=== PATIENT | female | born 1955 | race Caucasian/White ===

== ENCOUNTER 2017-10-21 13:01 | Emergency (ER) | payer OTHER ==
[2017-10-21 13:22] VITALS: BP 128/62
--- NOTE | 2017-10-21 14:17 | UC ---
Abdominal Pain Female HPI - HPI Summary HPI Summary: 62 yo female presents with nausea and vomiting whenever she eats anything for the last 3 weeks. She tells me that more times than not she will vomit within an hour of eating any meal. Over the last 3 weeks she endorses a 20lb weight loss - unintentional. She says she has a hx of acid reflux and sometimes this happens, but usually takes OTC medication and has good relief...she has been taking them this time with no relief. Also, over the last 3 days complains of increased SOB with any exertion. She is diabetic and says he BS has been running around 150. Denies fever, chills, chest pain, abdominal pain, diarrhea, or dysuria. - History of Current Complaint Chief Complaint: UCGI Stated Complaint: VOMITING Time Seen by Provider: 10/21/17 13:36 Hx Obtained From: Patient Severity Currently: None Pain Intensity: 0 Allergies/Adverse Reactions: Allergies Allergy/AdvReac Type Severity Reaction Status Date / Time No Known Allergies Allergy Verified 10/21/17 14:52 Home Medications: Home Medications Glimepiride 1 tab PO BID 10/21/17 [History Confirmed 10/21/17] Lisinopril/HCTZ 20/25(NF) [Zestoretic 20/25(NF)] 1 tab PO BID 10/21/17 [History Confirmed 10/21/17] Methylcobalamine (NF) [B-12] 1 tab PO DAILY 10/21/17 [History Confirmed 10/21/17 ] Pioglitazone TAB* [Actos TAB*] 1 tab PO DAILY 10/21/17 [History Confirmed ] Sitagliptin Phosphate [Januvia] 1 tab PO DAILY 10/21/17 [History Confirmed 10/21] metFORMIN* [Glucophage 850 MG TAB *] 1 tab PO TID 10/21/17 [History Confirmed ] PMH/Surg Hx/FS Hx/Imm Hx Endocrine History: Diabetes Cardiovascular History: Hypertension GI/ History: Gastroesophageal Reflux - Surgical History Surgical History: None - Family History Known Family History: Positive: Diabetes - Social History Lives: With Family Alcohol Use: None Substance Use Type: None Smoking Status (MU): Never Smoked Tobacco Review of Systems Constitutional: Negative Skin: Negative Eyes: Negative ENT: Negative Respiratory: Shortness Of Breath Cardiovascular: Negative Gastrointestinal: Vomiting, Nausea Genitourinary: Negative Motor: Negative Neurovascular: Negative Musculoskeletal: Negative Neurological: Negative Psychological: Negative All Other Systems Reviewed And Are Negative: Yes Physical Exam - Summary Physical Exam Summary: GENERAL: NAD. Obese SKIN: No rashes, sores, or open wounds. HEENT: Head: AT/NC Eyes: PERRLA. EOM intact. Conjunctiva clear without inflammation or discharge. Ears: Hearing grossly normal. TMs intact, no bulging, erythema, or edema. Nose: Nasal mucosa pink and moist. NTTP maxillary and frontal sinus. Throat: Posterior oropharynx without exudates, erythema, or tonsillar enlargement. Uvula midline. NECK: Supple. Nontender. No lymphadenopathy. CHEST: CTAB. No r/r/w. No accessory muscle use. Breathing comfortably and in no distress. CV: Tachycardia. Without m/r/g. Pulses intact. Brisk cap refill. ABDOMEN: Soft. NTTP. No distention or guarding. Bowel sounds present NEURO: Alert. CN II-XII grossly intact. PSYCH: Age appropriate behavior. Triage Information Reviewed: Yes Vital Signs: Initial Vital Signs Temp 100.4 F 10/21/17 13:19 Pulse 119 10/21/17 13:19 Resp 18 10/21/17 13:19 BP 128/62 10/21/17 13:19 Pulse Ox 97 10/21/17 13:19 Abd Pain Female Course/Dx - Course Course Of Treatment: POC Glucose "out of range" indicating >400. EKG Sinus tach with old anterior infarct rate 104bpm. No ST changes. As read by Dr. Lala. Given her hyperglycemia and persistant vomiting - I have advised her to be further evaluated in the ED. She declined ambulance and will have her family member with her today drive her. - Differential Dx/Diagnosis Provider Diagnoses: Vomiting. Hyperglycemia Discharge - Sign-Out/Discharge Documenting (check all that apply): Discharge/Admit/Transfer - Discharge Plan Condition: Stable Disposition: HOME Referrals: No Primary Care Phys,NOPCP [Primary Care Provider] - Additional Instructions: Please have your ride drive you to the ER for further evaluation of your hyperglycemia and vomiting - Billing Disposition and Condition Condition: STABLE Disposition: Home
== END 2017-10-21 14:20 | disposition home or self-care (01) ==
LOC: UCEAST 13:01
DX: R11.2 Nausea with vomiting, unspecified (principal); R73.9 Hyperglycemia, unspecified; I10 Essential (primary) hypertension; K21.9 Gastro-esophageal reflux disease without esophagitis; Z79.899 Other long term (current) drug therapy
CPT/HCPCS: 93005; 99202; G0463

== ENCOUNTER 2017-10-21 14:44 | Inpatient (IN) | payer OTHER ==
[2017-10-21] MEDS ORDERED: NS 0.9% 1000 ML* 1,000 ML IV ONE ×2 (16:13→18:05)
[2017-10-21 16:38] LABS: ABS Basophils 0 10^3/ul (0-0.2); ABS Eosinophils 0 10^3/ul (0-0.6); ABS Lymphocytes 0.8 10^3/ul (1.0-4.8); ABS Monocytes 1.3 10^3/ul (0-0.8); ABS Neutrophils 19.7 10^3/ul (1.5-7.7); ABS Nucleated RBC 0 10^3/ul; Eosinophil % 0 % (0-6); Hematocrit 31 % (35-47); Hemoglobin 10.7 g/dl (12.0-16.0); Lymphocyte % 3.7 % (25-47); Mean Corpuscular HGB Conc 34 g/dl (31-36); Mean Corpuscular Hemoglobin 28 pg (27-31); Mean Corpuscular Volume 83 fL (80-97); Mean Platelet Volume 6.8 um3 (7.4-10.4); Nucleated Red Blood Cells % 0; Platelet Count 594 10^3/ul (150-450); Red Blood Count 3.79 10^6/ul (4.00-5.40); Red Cell Distribution Width 14 % (10.5-15); White Blood Count 21.8 10^3/ul (3.5-10.8)
[2017-10-21 17:08] LABS: EGFR Non-African American 41.6 (>60)
[2017-10-21] MEDS ORDERED: Insulin REGULAR(*) 1 UNITS UNIT SUBCUT ONE (18:05)
[2017-10-21 18:12] LABS: Urine Appearance Turbid; Urine Blood 2+ (Negative); Urine Color Amber; Urine Ketones Trace (Negative); Urine Protein 2+(100 mg/dL) (Negative); Urine Red Blood Cell 3+(>10/hpf) (Absent); Urine Specific Gravity 1.024 (1.010-1.030); Urine Urobilinogen Negative (Negative); Urine White Blood Cell 3+(>20/hpf) (Absent)
[2017-10-21] MEDS ORDERED: Ciprofloxacin 400MG IVPREMIX(* 400 MG/200 ML BAG IVPB ONE (18:55)
[2017-10-21] MEDS ORDERED: Dextrose 50% Syringe 50 ML* 25 GM/50 ML SYRINGE IV PUSH PRN (19:44)
[2017-10-21] MEDS ORDERED: Vancomycin per Pharmacy* NOTE FOLLOW UP SCH (20:00)
[2017-10-21] MEDS ORDERED: Vancomycin(*) 2,000 MG in NS 0.9% 500 ML* 500 ML IVPB ONE (20:15)
[2017-10-21] MEDS: metroNIDAZOLE IV 500 MG/100ML* 500 MG/100 ML BAG IVPB SCH (20:16)
[2017-10-21] MEDS: Cefepime 2 GM in Dextrose(*) 2 GM/50 ML BAG IV SCH (20:16)
--- NOTE | 2017-10-21 20:20 | RAD ---
INDICATION: Short of breath COMPARISON: None TECHNIQUE: An AP portable view obtained at 2015 hours is submitted. FINDINGS: Bones/Soft Tissues: There are no acute bony findings. Cardiomediastinal: The cardiomediastinal silhouette is normal. The interstitium is prominent. This is likely accentuated due to shallow inspiratory effort. Lungs: A small infiltrate left lung base is not excluded. Lung jones are otherwise clear. Pleura: Suspect small left-sided effusion. Other: None IMPRESSION: Possible left basilar infiltrate and small effusion
[2017-10-21 20:45] LABS: INR 1.36 (0.77-1.02)
[2017-10-21] MEDS: Heparin VIAL(*) 5000 UNITS/ML VIAL (FIVE THOUSAND) SUBCUT SCH (22:45)
[2017-10-21 22:57] LABS: EGFR Non-African American 52.2 (>60)
--- NOTE | 2017-10-22 00:42 | HP ---
CC: Dr. Bud Edwards, [place], [place]; Dr. Linda; Dr. Kelley * CONSULTATION REPORT: DATE OF CONSULT: 10/21/17 PRIMARY CARE PROVIDER: Dr. Bud Edwards, [place], [place], phone number [phone]. CONSULTING ORTHOPEDIST: Dr. Linda. CONSULTING INFECTIOUS DISEASE: Dr. Kelley. ATTENDING PHYSICIAN WHILE IN THE HOSPITAL: Dr. Benny Chin * (report dictated by Matthew Cuello NP). CHIEF COMPLAINT: 1. Nausea. 2. Vomiting. 3. Weight loss. 4. Right foot infection. HISTORY OF PRESENT ILLNESS: Ms. Wallace is a 62-year-old female patient, who is visiting from [place]. She is visiting her parents, who reside here. She states that over the last couple weeks, she has been having intermittent nausea and vomiting. She has not really been eating. She has not been feeling well. She has had the general malaise. She is having chills at night. She states that she has not had any abdominal pain. No dysuria or frequency. No flank tenderness. She has denied any coffee-ground emesis. There has been no tarry stools. She has been having bowel movements. She denies any having any abdominal discomfort. She also states that about 2 weeks ago, she stubbed her toe. She has had a fissure or crack in her toe. She was seen by her steward/stewardess bath. She was keeping an eye on it; however, though the toenail fell off and she states that it has been having a foul, malodorous smell, particularly the right great toe. She states that it has been red, hot, erythematic and this has not been healing. She did notice some black tissue to it as well. She states that she has never had any amputation before for her diabetes and that this was the first that this has happened. She states her sugars have been uncontrolled over the last week. She has had significant elevated glucose. She states that, that is why she initially went to Urgent Care today because of the nausea and her blood glucose being high. She thought she was in DKA. She was sent here and it was noted that she had this significant infection of her toe and we were asked to evaluate for admission. PAST MEDICAL HISTORY: Significant for: 1. Diabetes. 2. Hypertension. 3. Hyperlipidemia. PAST SURGICAL HISTORY: The patient has had a: 1. Hysterectomy. 2. Breast reduction. HOME MEDICATIONS: Include: 1. Calcium 500 mg daily. 2. B12 one tablet p.o. daily. 3. Lisinopril/hydrochlorothiazide 1 tablet p.o. b.i.d. 4. Metformin 1 tablet p.o. t.i.d. 5. Januvia 1 tablet p.o. daily. 6. Lactose 1 tablet p.o. daily. 7. Glimepiride 1 tablet p.o. b.i.d. ALLERGIES TO MEDICATIONS: Include no known drug allergies. FAMILY HISTORY: Mother had a history of uterine cancer. Father is healthy. SOCIAL HISTORY: The patient does not smoke. She does not drink. Surrogate decision maker is her brother and sister. REVIEW OF SYSTEMS: There is a documented fever at Urgent Care, it was 100.4. There was a 20-pound weight loss over the last 2 weeks. She denies having any double vision. There is no ear discharge. There is no rhinorrhea. She denies having any sore throat. No thyroid enlargement. Denies having any chest pain. There was again no orthopnea, no nocturnal dyspnea. She does admit to having nausea with vomiting, but no abdominal pain. No dysuria, no frequency. No seizure. No loss of consciousness. No pruritus. There is skin ulceration per my HPI. Review of 14 systems was completed, all others negative. PHYSICAL EXAMINATION General: At this time, Ms. Wallace is a 62-year-old female patient. She is sitting in the ED stretcher. She does not appear to be in any acute distress. Vital Signs: Blood pressure initially 127/70, it is now 148/50. Pulse initially when she came in was 115, it is now 90, respirations 18, O2 sat 98%, temperature 98.9. HEENT: Head atraumatic, normocephalic. Eyes: EOMs are intact. Sclerae are anicteric, not pale. Throat: Oral mucosa appears to be dry. No oropharyngeal erythema. Neck: Supple. LUNGS: Clear to auscultation bilaterally. No wheezes, rales or rhonchi. HEART: S1, S2. Regular rate and rhythm. There are no murmurs, rubs or gallops. ABDOMEN: Soft, flat, nontender. Bowel sounds were present. There is no CVA tenderness. No abdominal tenderness. EXTREMITIES: She did have pulses 2+ throughout. She moves all 4 extremities with 5/5 strength. NEUROLOGICAL: She is awake, alert, oriented x3. Tongue midline. Coupon And Bond Collection Clerk are equal. No gross focal deficits. SKIN: She does have a significant right great toe infection with sloughing and widening of the tissue. There is necrosis and gangrene to the right great toe. It is actually shorter than her left great toe. There is no exposed bone that I could see. There is significant again diabetic ulcer to the tip of the toe. There is erythema extending up into the mid foot. Otherwise, skin is intact. DIAGNOSTIC STUDIES/LAB DATA: Her labs today revealing a WBC of 21.8, RBC of 3.79, hemoglobin of 10.7, hematocrit 31, platelet count was 594. The blood gas , pH of 7.40, pCO2 of 46, bicarb 26. Sodium 124, potassium 4.7, chloride 87, bicarb 26, BUN 39, creatinine 1.29, glucose 415, lactate 1.2, calcium 9.1, total bili 0.5, AST 35, ALT 51, alk phos 82, troponin 0, CRP 149. Urine showed 2+ protein, trace ketones, 2+ blood, 3+ leukocyte esterase, 2+ wbc's, 2+ rbc's, 3+ bacteria. She did have an EKG done over to [facility] showing a sinus tachycardia at a rate of 104. No ST elevations were noted. She did have biphasic T-wave in V1 and inverted T waves in lead III. No previous for comparison though. Old medical records were reviewed. ASSESSMENT AND PLAN: Ms. Wallace is a 62-year-old female patient coming into the emergency department with complaints of nausea, vomiting, on evaluation found to have a significant gangrenous right great toe. We were asked to evaluate for admission. She will be admitted under observation status for: 1. Sepsis. I suspect the source of this is probably secondary to that great toe. I am concerned that she has osteomyelitis. Fortunately though she did respond to fluids here. She does not appear to be in permanent septic shock. She certainly does have the element of sepsis, the white count, and the tachycardia when she came in. I do not have a baseline creatinine and this could be a baseline creatinine given the diabetes. My plan would be to put her on broad-spectrum antibiotics, vanco, cefepime, and Flagyl. Blood cultures have been sent. We will send a urine culture. I will get Dr. Kelley involved and Dr. Linda has been consulted if she is going to need debridement of this foot and possibly amputation and I am getting an MRI of that lower extremity to define the extent of osteomyelitis. 2. Hyponatremia, this is multifactorial. She has been having nausea and vomiting. I suspect the nausea and vomiting is probably related to the fact that she is septic and that is where the weight loss was coming from. I would like to treat this underlying infection, it should help. She has no abdominal tenderness or cerebrovascular accident tenderness to think there is an abdominal pathology here. My plan would be to send off the urine sodium, urine osmol, serum osmol, TSH, cortisol, hydrate her, stop her hydrochlorothiazide as that is an offending agent. Repeat the BMP later tonight because she did receive 2 L of fluid and follow the sodium closely. 3. Diabetes. I will put her on a lispro sliding scale. I will add on an A1c. 4. Hypertension. In the setting of this acute illness, I am going to hold off on her lisinopril and hydrochlorothiazide, we can always restart this later. 5. Risk stratification. I am waiting for the risk stratification for possible OR. I am waiting for EKG and a chest x-ray. If these are stable, she does score on the RCRI for the diabetes, which places her at a 1% risk for cardiac , non-fatal myocardial infarction, and non-fatal cardiac arrest, and 1.3% for myocardial infarction, pulmonary edema, ventricular fibrillation, primary cardiac risk including heart block; however, the proposed procedure is low-risk so if the EKG is stable and the chest x-ray is stable and the sodium comes up, she would be medically optimized; but at this point, again we need to work on these. 6. Hyperlipidemia. Continue meds as prescribed. 7. DVT prophylaxis. High risk and will be placed on heparin subcu. 8. Code status is full code. 9. Fluids, electrolytes, and nutrition. She can have a consistent carb diet. I will make her n.p.o. after midnight for possible amputation tomorrow if this is possible. TIME SPENT: Time spent on the admission 60 minutes, greater than half of the time was spent [id number] with the patient obtaining my history and physical; other half time was spent going over the plan of care with the patient and implementing plan of care. I did discuss the plan of care with my attending, Dr. Benny Chin, and he is in agreement. MATTHEW CUELLO, MICHELLE [id number]/CPS #: [id number] ERIC
[2017-10-22] MEDS: metroNIDAZOLE IV 500 MG/100ML* 500 MG/100 ML BAG IVPB SCH ×3 (04:45→20:40)
[2017-10-22] MEDS: Vancomycin(*) 1,000 MG in NS 0.9% 250 ML* 250 ML IVPB SCH ×3 (05:56→22:18)
[2017-10-22] MEDS: Heparin VIAL(*) 5000 UNITS/ML VIAL (FIVE THOUSAND) SUBCUT SCH ×3 (05:56→22:18)
[2017-10-22 06:03] LABS: ABS Basophils 0 10^3/ul (0-0.2); ABS Eosinophils 0 10^3/ul (0-0.6); ABS Neutrophils 9.2 10^3/ul (1.5-7.7); ABS Nucleated RBC 0 10^3/ul; Eosinophil % 0.2 % (0-6); Hematocrit 27 % (35-47); Hemoglobin 9.3 g/dl (12.0-16.0); Mean Corpuscular HGB Conc 34 g/dl (31-36); Mean Corpuscular Hemoglobin 28 pg (27-31); Mean Corpuscular Volume 83 fL (80-97); Mean Platelet Volume 6.4 um3 (7.4-10.4); Nucleated Red Blood Cells % 0; Platelet Count 520 10^3/ul (150-450); Red Blood Count 3.29 10^6/ul (4.00-5.40); Red Cell Distribution Width 14 % (10.5-15); White Blood Count 11.3 10^3/ul (3.5-10.8)
[2017-10-22 06:29] LABS: EGFR Non-African American 60.7 (>60)
--- NOTE | 2017-10-22 06:58 | ED ---
Joaquin Murrieta Angela, scribed for Krishna Osman MD on 10/21/17 at 1618 . HPI Diabetic - HPI Summary HPI Summary: This pt is a 62 y/o female presenting to [facility] referred by [facility] c/o vomiting for the past 3 weeks. Pt reports weight loss, losing 20 lbs over the past 2 weeks. She notes she has had decreased PO intake secondary to vomiting. Denies any pain, abd pain, chest pain. Pt originally thought she had acid reflux but went to Urgent Care today and her POC blood glucose was greater than 500. PMHx includes DM, HTN. She has been taking Metformin, Januvia, Pioglitazone, Glimepiride for "quite a while now." Pt lives in [place]. - History Of Current Complaint Chief Complaint: EDNauseaVomitDiarrh Time Seen by Provider: 10/21/17 16:00 Hx Obtained From: Patient Onset/Duration: Lasting Weeks, Still Present Timing: Weeks Character: Alert Aggravating: Nothing Alleviating: Nothing Associated Signs & Symptoms: Vomiting, Weight Loss - Allergies/Home Medications Allergies/Adverse Reactions: Allergies Allergy/AdvReac Type Severity Reaction Status Date / Time No Known Allergies Allergy Verified 10/21/17 14:52 Home Medications: Home Medications Calcium Carbonate [Calcium] 500 mg PO DAILY 10/21/17 [History Confirmed 10/21/17 ] PMH/Surg Hx/FS Hx/Imm Hx Endocrine/Hematology History: Reports: Hx Diabetes Cardiovascular History: Reports: Hx Hypertension Infectious Disease History: No Infectious Disease History: Denies: Traveled Outside the [place] in Last 30 Days - Social History Alcohol Use: None Substance Use Type: Reports: None Smoking Status (MU): Never Smoked Tobacco Review of Systems Constitutional: Other - POS: decreased PO intake, weight loss Negative: Fever Negative: Chest Pain Positive: Vomiting. Negative: Abdominal Pain All Other Systems Reviewed And Are Negative: Yes Physical Exam - Summary Physical Exam Summary: Appearance: The patient is well-nourished in no acute distress and in no acute pain. Skin: The skin is warm and dry and skin color reflects adequate perfusion. HEENT: The head is normocephalic and atraumatic. The pupils are equal and reactive. The conjunctivae are clear and without drainage. Nares are patent and without drainage. Mouth reveals dry mucous membranes and the throat is without erythema and exudate. The external ears are intact. The ear canals are patent and without drainage. The tympanic membranes are intact. Neck: the neck is supple with full range of motion and non-tender. There are no carotid bruits. There is no neck vein distension. Respiratory: Chest is non-tender. Lungs are clear to auscultation and breath sounds are symmetrical and equal. Cardiovascular: Heart is regular rate and rhythm. There is no murmur or rub auscultated. There is no peripheral edema and pulses are symmetrical and equal. Abdomen: The abdomen is soft and non-tender. There are normal bowel sounds heard in all four quadrants and there is no organomegaly palpated. Musculoskeletal: There is no back tenderness noted. Extremities are non-tender with full range of motion. There is good capillary refill. There is no peripheral edema or calf tenderness elicited. Neurological: Patient is alert and oriented to person, place and time. The patient has symmetrical motor strength in all four extremities. Cranial nerves are grossly intact. Deep tendon reflexes are symmetrical and equal in all four extremities. Psychiatric: The patient has an appropriate affect and does not exhibit any anxiety or depression. Triage Information Reviewed: Yes Vital Signs On Initial Exam: Initial Vitals Temp Pulse Resp BP Pulse Ox 98.9 F 115 16 127/70 98 10/21/17 14:50 10/21/17 14:50 10/21/17 14:50 10/21/17 14:50 10/21/17 14:50 Vital Signs Reviewed: Yes Diagnostics - Vital Signs Vital Signs Temp Pulse Resp BP Pulse Ox 10/21/17 14:50 98.9 F 115 16 127/70 98 - Laboratory Result Diagrams: 10/22/17 05:49 10/22/17 05:49 Lab Statement: Any lab studies that have been ordered have been reviewed, and results considered in the medical decision making process. Diabetic Course/Dx - Course Course Of Treatment: Ms. Wallace presented to the emergency department complaining of vomiting and weight loss over the last 2 weeks. She went to [facility] where she was noted to be hyperglycemic and transferred to the emergency department. She was given IV fluids, found to be hyperglycemic with a blood sugar over 400 no DKA and found to have a leukocytosis of 20,000 and a UTI. She was given more IV fluids, insulin and Cipro. The hospitalist service was contacted for admission. - Diagnoses Provider Diagnoses: Hyperglycemia, UTI (urinary tract infection) - Physician Notifications Discussed Care Of Patient With: Ernestina Black Time Discussed With Above Provider: 18:55 Instructed by Provider To: Other - I discussed pt care with Dr. Black, hospitalist, who accepted the pt for admission. - Critical Care Time Critical Care Time: 30-74 min Discharge - Sign-Out/Discharge Documenting (check all that apply): Discharge/Admit/Transfer - Admit - Discharge Plan Condition: Stable Disposition: ADMITTED TO [facility] - Billing Disposition and Condition Condition: STABLE Disposition: Admitted to [facility] The documentation as recorded by the Joaquin vigil Angela, SCRIBE accurately reflects the service I personally performed and the decisions made by me, Krishna Osman MD.
--- NOTE | 2017-10-22 07:21 | RAD ---
INDICATION: Right foot osteomyelitis. COMPARISON: There are no prior studies available for comparison. TECHNIQUE: Axial, sagittal and coronal T1 and T2-weighted images of the right foot were obtained. FINDINGS: There is diffuse soft tissue swelling throughout the foot with more focal swelling and ulceration in the great toe. There is bone marrow edema in the phalanges of the great toe and distal half of the first metatarsal. No focal fluid collection or abscess is seen. IMPRESSION: FINDINGS MOST CONSISTENT WITH OSTEOMYELITIS INVOLVING THE RIGHT GREAT TOE AND FIRST METATARSAL.
--- NOTE | 2017-10-22 08:34 | RAD ---
INDICATIONS: osteo, foot infection COMPARISONS: None TECHNIQUE: Ankle-brachial indices and Doppler tracings were obtained of the lower extremities bilaterally. FINDINGS: Right: The posterior tibial ankle brachial index is 1.45. The dorsalis pedis ankle brachial index is 1.21. The posterior tibial waveform is triphasic. The dorsalis pedis waveform is triphasic. Left: The posterior tibial ankle brachial index is 1.34. The dorsalis pedis ankle brachial index is 1.19. The posterior tibial waveform is triphasic. The dorsalis pedis waveform is triphasic. OTHER: None. IMPRESSION: 1. THERE IS ELEVATION OF THE ANKLE-BRACHIAL INDICES SUGGESTIVE OF DECREASED COMPLIANCE IN THE SETTING ARTERIOSCLEROSIS. THIS MAY ARTIFACTUALLY MASK PERIPHERAL ARTERIAL OCCLUSIVE DISEASE. 2. THE DISTAL WAVEFORMS ARE NORMAL.
[2017-10-22] MEDS: Insulin LISPRO* 1 UNITS UNIT SUBCUT SCH ×3 (10:04→19:44)
[2017-10-22] MEDS: Cefepime 2 GM in Dextrose(*) 2 GM/50 ML BAG IV SCH ×2 (11:06→19:56)
--- NOTE | 2017-10-22 14:44 | PN ---
Subjective Date of Service: 10/22/17 Interval History: Pt reports little pain stating she only feels a throbbing. She denies fever or chills. Reports she did have nausea prior to coming in which has since resolved. She reports she feels "pretty good today". She reports she noted a crack in the toe a few weeks ago then noted it was black, the tip fell off - she denies any pain. She states she follow with a tax compliance officer every month. Objective Active Medications: Acetaminophen (Tylenol Tab*) 650 mg PO Q4H PRN PRN Reason: FEVER/PAIN Dextrose (D50w Syringe 50 Ml*) 12.5 gm IV PUSH .FOR FS < 60 - SS PRN PRN Reason: FS < 60 Heparin Sodium (Porcine) (Heparin Vial(*)) 5,000 units SUBCUT Q8HR [facility] Last Admin: 10/22/17 14:32 Dose: 5,000 units Cefepime HCl (Maxipime 2 Gm In Dextrose Duplex (*)) 2 gm in 50 mls @ 100 mls/ hr IV Q12H [facility] Last Admin: 10/22/17 11:06 Dose: 100 mls/hr Metronidazole/Sodium Chloride (Flagyl 500 Mg Ivpb*) 500 mg in 100 mls @ 100 mls /hr IVPB Q8H [facility] Last Admin: 10/22/17 14:33 Dose: 100 mls/hr Sodium Chloride (Ns 0.9% 1000 Ml*) 1,000 mls @ 100 mls/hr IV PER RATE [facility] Vancomycin HCl 1,000 mg/ (Sodium Chloride) 250 mls @ 166.667 mls/hr IVPB Q8H [facility] Last Admin: 10/22/17 05:56 Dose: 166.667 mls/hr Insulin Human Lispro (Humalog*) 0 units SUBCUT AC [facility]; Protocol Last Admin: 10/22/17 14:33 Dose: 6 units Morphine Sulfate (Morphine Vial*) 2 mg IV Q2H PRN PRN Reason: PAIN Pharmacy Consult (Vancomycin Per Pharmacy*) 1 note FOLLOW UP .VANC PER PHARMACY [facility] Pharmacy Profile Note (Vancomycin Trough Check) 1 note FOLLOW UP 0600 ONE Stop: 10/23/17 06:01 Vital Signs - 8 hr 10/22/17 11:24 Temperature 98.4 F Pulse Rate 77 Respiratory 18 Rate Blood Pressure 123/41 (mmHg) O2 Sat by Pulse 97 Oximetry Oxygen Devices in Use Now: None Appearance: 62 yo obese female laying in bed in NAD, A+Ox3 Eyes: No Scleral Icterus, PERRLA Ears/Nose/Mouth/Throat: NL Teeth, Lips, Gums, Mucous Membranes Moist Neck: NL Appearance and Movements; NL JVP Respiratory: Symmetrical Chest Expansion and Respiratory Effort, Clear to Auscultation Cardiovascular: NL Sounds; No Murmurs; No JVD, RRR Abdominal: NL Sounds; No Tenderness; No Distention Extremities: - - right big toe is black, the tip is missing, draining small amount of clear, yellow fluid. Foul odor Neurological: Alert and Oriented x 3 Lines/Tubes/Other Access: Clean, Dry and Intact Peripheral IV Nutrition: - - NPO Result Diagrams: 10/22/17 05:49 10/22/17 05:49 Assess/Plan/Problems-Billing Assessment: 62 yo female with uncontrolled diabetes presents to the emergency department with c/o N/V found to have a necrotic toe and sepsis. - Patient Problems (1) Gangrene Comment: - Right great toe. - MRI right LE showing "findings most consistent with osteomyletis of the right great toe and elsa metatarsal". - Appreciate Ortho consult - plan for OR today or tomorrow. - Continue Cefepime, Flagyl, Vanco - Apprciate ID consult (2) Sepsis Comment: - resolved. Screening positive for sepsis on admission with tachycardia and leukocytosis. Leukocytosis is trending down 21k down to 11. CRP 149, ESR 118. No lactic acidosis. - Blood cx pending (3) Pre-op evaluation Comment: Patients RCRI score Class II risk placing her at 0.9% risk of cardiac event. She is active and exercises regularly w/o CP or SOB, and has METS > 4. However, she is an uncontrolled diabetic, and has an abnormal EKG showing possible old CA. Will obtain an echocardiogram to evlauate EF and valvular function. (4) Acute kidney failure Comment: resolved with IVFs (5) Hyponatremia Comment: - Suspect multifactorial with HCTZ, vomiting and dehydration. - Improving with IVFs. - recheck labs in am (6) Diabetes Comment: - uncontrolled DM. HgA1c 10 - Hold oral medications, continue FSBG with Lispro SS (7) HTN (hypertension) Comment: - controlled - HCTZ on hold d/t hyponatremia. Can restart lisinopril after surgery - Kim currently controlled (8) Patient is full code (9) DVT prophylaxis Comment: HSQ Status and Disposition: inpatient.
[2017-10-22] MEDS ORDERED: Bupivacaine 0.5% PF 10 ML VIAL INJ ONE (15:11)
[2017-10-22] MEDS ORDERED: fentaNYL* 50 MCG/ML 2 ML VIAL (100 MCG VIAL) ONE ×3 (15:36→17:41)
[2017-10-22] MEDS ORDERED: Midazolam* 1 MG/ML 2 ML VIAL (2 MG) ONE (15:37)
[2017-10-22] MEDS ORDERED: Lidocaine 2% PF* 10 ML AMP ONE (16:17)
[2017-10-22] MEDS ORDERED: Propofol* 10 MG/ML 20 ML BTL IV PUSH ONE (16:37)
[2017-10-22] MEDS ORDERED: Ondansetron INJ* 2 MG/ML VIAL IV PRN (17:03)
[2017-10-22] MEDS ORDERED: Naloxone* 0.4 MG/ML 1 ML VIAL IV PRN (17:03)
[2017-10-22] MEDS ORDERED: HYDROmorphone INJ* 0.5 MG/0.5 ML SYRINGE ONE ×2 (17:41→18:07)
[2017-10-22] MEDS: fentaNYL* 50 MCG/ML 2 ML VIAL (100 MCG VIAL) IV PRN ×2 (17:42→18:02)
[2017-10-22] MEDS: HYDROmorphone INJ* 0.5 MG/0.5 ML SYRINGE IV PRN ×2 (17:45→18:07)
[2017-10-22] MEDS: NS 0.9% 1000 ML* 1,000 ML IV SCH (18:25)
--- NOTE | 2017-10-22 18:42 | CONS ---
CONSULTATION REPORT: DATE OF CONSULT: 10/22/17 REQUESTING PROVIDER: Matthew Cuello NP CONSULTING SERVICE: Infectious Disease. REASON FOR CONSULT: Right foot infection. IMPRESSION: 1. Right foot first great toe and distal metatarsophalangeal joint acute non- hematogenous osteomyelitis with wet gangrene, limb threatening infection. 2. Diabetes with neuropathy and hyperglycemia. 3. Morbid obesity. 4. Peripheral vascular disease. RECOMMENDATIONS: Agree with broad-spectrum antibiotics. Vancomycin goal trough of 15 to 20 with cefepime 2 g every 12 hours and IV Flagyl every 8 hours as well as surgical evaluation, which is ongoing. The presence of this rapidly progressive infection and gangrene does leave concern for significant component of vascular compromise and so, her ROBBIN showed increased indices likely due to calcification, likely we should discuss this with radiologist to see what the next best imaging test is to assess the blood flow. HISTORY OF PRESENT ILLNESS: This is a 62-year-old woman with diabetes and obesity, admitted with right foot infection. She states she stubbed the toe about 2 weeks ago. The tip of the toe eventually came off. She has had progressive redness and swelling and the toe color turned black and started having a foul odor. She said the skin on the foot started turning red and swollen and she felt like she was getting some bubble on the bottom of her foot. She was having some fever or chills at home. Her blood sugar was much higher at home. She proceeded to urgent care yesterday and was directed to the emergency room. Had a white count 22,000 and platelets of 600,000. MRI showed osteomyelitis in the great toe and first metatarsal head. She had been on vancomycin, cefepime and Flagyl, tolerating that well and no fever since arriving here. Her white count is down to 11,000 today. She has had a third toe infection on that foot in the past, treated with resection of some bone. She is not allergic to antibiotics. PAST MEDICAL HISTORY: 1. Morbid obesity. 2. 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 3. Hypertension. 4. Hyperlipidemia. 5. Status post hysterectomy. 6. Status post breast reduction. MEDICATIONS: 1. Tylenol. 2. Heparin subcutaneous injection. 3. Cefepime 2 g every 12 hours. 4. Flagyl 500 mg every 8 hours. 5. Vancomycin 1 g every 8 hours. ALLERGIES: No known drug allergies. FAMILY HISTORY: Father is healthy, mother is alive as well with history of uterine cancer and foot osteomyelitis. SOCIAL HISTORY: She lives in [place]. She spends the [place] here where her parents live. No sick contacts. No travel other than from [place]. REVIEW OF SYSTEMS: All negative to 14-point review of systems, except as noted above in the history of present illness. PHYSICAL EXAM: Vital Signs: Temperature 37, heart rate 80, respiratory rate 18 , blood pressure 123/40, oxygen saturation 97% on room air. In general, she is awake, not in distress. Neurologic: She is oriented x3, follows all commands, moves all of her extremities. Sensation is decreased to light touch in both feet. HEENT: There is no conjunctival hemorrhage. Oropharynx without lesions. Neck: Supple without mass. Heart: Regular rate and rhythm without murmurs, rubs, or gallops. Lungs: Clear to auscultation bilaterally. Abdomen: Soft, nontender, obese. There is bowel sounds present. Skin: There is no rash or splinter hemorrhage. On the right foot, what is left of the great toe is black. There is purulent drainage from it, which extends under the dermis through the plantar foot. There is no crepitus. There is diffuse edema and some fluctuance on the plantar forefoot. The foot is warm. There is no palpable pulse on the feet. LABORATORY DATA: White blood cell count 11, hemoglobin 9, platelets 520. Creatinine is 0.9. CRP 150. Please see impressions and recommendations as outlined above. Thanks for asking me to see Ms. Wallace in consultation. [id number]/[facility] #: [id number] [facility]
[2017-10-22] MEDS: Morphine VIAL* 4 MG/ML VIAL (1 ml vial) IV PRN ×2 (19:34→22:46)
[2017-10-22 19:35] LABS: INR 1.37 (0.77-1.02)
--- NOTE | 2017-10-22 19:40 | CONS ---
CONSULTATION REPORT: DATE OF CONSULT: 10/22/17 ORTHOPEDIC ATTENDING: Dr. Surya Lyons. CHIEF COMPLAINT: Right foot infection. HISTORY OF PRESENT ILLNESS: Ms. Wallace is a 62-year-old female who is in town visiting her parents from [place]. Over the past couple weeks, she notes intermittent nausea and vomiting as well as chills at night. She reports 2 weeks ago, she stubbed her toe and subsequently noticed a crack of the right great toe. She did not see her structural architect, but was treated with Cipro, which she finished yesterday. Her toenail has fallen off. She reports a foul odor from the toe. For many years, she has had neuropathy of her feet. She is a diabetic and her sugars have been very poorly controlled, stating that at arrival to the hospital her sugar was over 500. The black coloration of her toe has been present only for 1 week. Due to complications from diabetes, she did have her structural architect remove a section of bone from her toe that easily came off in the office. She has had surgery before without any difficulty with anesthesia. She has never had a heart attack, stroke or blood clot. PAST SURGICAL HISTORY: Includes a hysterectomy and a breast reduction. MEDICATIONS: Home medications include: 1. Calcium 500 mg daily. 2. B12 one tab daily. 3. Lisinopril 20/hydrochlorothiazide 25 one tab p.o. b.i.d. and she states that she also takes 20 mg of lisinopril. 4. Metformin 850 mg 1 tab p.o. t.i.d. 5. Januvia 1 tab 100 mg tab p.o. daily. 6. Lactose 1 tab p.o. daily. 7. Glimepiride 2 mg p.o. b.i.d. ALLERGIES: No known drug allergies. FAMILY HISTORY: Mother has a history of uterine cancer. SOCIAL HISTORY: The patient is a nonsmoker. She does not drink alcohol. She swims 1.5 miles daily without chest pain or difficulty breathing REVIEW OF SYSTEMS: General: Confirms fever and chills. HEENT: No headache. Cardiac: No history of heart attack. No irregular beats. No chest pain. Respiratory: No history of asthma or COPD. No difficulty breathing. GI: Prior to coming into the hospital, she had nausea and vomiting. She has no diarrhea or abdominal pain. : no dysuria. Musculoskeletal: Right foot with right great toe infection. Neuro: neuropathy of bilateral feet. Hematology: No known blood clot history. Skin: Right great toe black/ malodorous PHYSICAL EXAM: Vital Signs: Temperature 98.4, respirations 18, pulse rate 77, oxygen saturation 97%, blood pressure 123/41. General: The patient is well appearing. She is in no acute distress. She is lying comfortably in bed. HEENT: Head is atraumatic, normocephalic. Eyes: Extraocular movements are intact. Lungs: Normal rate and effort of breathing. Cardio: Radial pulses 2+ and regular. Abdomen is soft and nontender. Extremities: Right lower extremity, right great toe is black in coloration and very foul smelling. It is very soft to touch with purulence and presence of maggots in the webspace between toes 1 and 2. Capillary refill is less than 2 seconds in toes 2 through 5. The patient lacks sensation throughout the entirety of the right foot. On the plantar aspect of the foot, there is skin sloughing extending to midfoot. She does have good range of motion of the ankle. Bilateral calves are soft and supple, nontender without any erythema. There is erythema from the right great toe extending up to the midfoot. DIAGNOSTIC STUDIES/LAB DATA: Laboratory studies from 10/22/17, white blood cell count 11.3, hemoglobin 9.3, hematocrit 27, platelet count 520. Sodium 128. MRI shows osteomyelitis of the right great toe and first metatarsal. Ankle-brachial index: Right posterior tibial ankle-brachial index is 1.45, dorsalis pedis ankle-brachial index is 1.21, posterior tibial waveform is triphasic, dorsalis pedis waveform is triphasic. ASSESSMENT: Osteomyelitis of the right great toe and first metatarsal. PLAN: The patient will require surgical intervention including an amputation of at least the great toe, though more likely either transmetatarsal or midfoot. She has been n.p.o. all day. This has been discussed with Dr. Lyons , who plans to bring her to the operating room tonight. We will need to obtain medical optimization. Medicine has been alerted to please see the patient prior to surgery and Infectious Disease is also seeing her to guide antibiotics. JULIANE DUTTON [id number]/[facility] #: [id number] [facility]
[2017-10-22] MEDS: Ondansetron INJ* 2 MG/ML VIAL IV PRN (20:55)
[2017-10-22] MEDS: Acetaminophen TAB* 325 MG PO PRN (22:47)
[2017-10-23] MEDS: metroNIDAZOLE IV 500 MG/100ML* 500 MG/100 ML BAG IVPB SCH ×3 (04:27→20:43)
[2017-10-23] MEDS: Morphine VIAL* 4 MG/ML VIAL (1 ml vial) IV PRN ×5 (04:35→20:03)
[2017-10-23] MEDS: Heparin VIAL(*) 5000 UNITS/ML VIAL (FIVE THOUSAND) SUBCUT SCH ×3 (05:24→21:20)
[2017-10-23] MEDS ORDERED: Vancomycin Trough Check NOTE FOLLOW UP ONE (06:00)
[2017-10-23 06:12] LABS: ABS Basophils 0 10^3/ul (0-0.2); ABS Eosinophils 0.1 10^3/ul (0-0.6); ABS Lymphocytes 0.9 10^3/ul (1.0-4.8); ABS Monocytes 0.8 10^3/ul (0-0.8); ABS Neutrophils 6.4 10^3/ul (1.5-7.7); ABS Nucleated RBC 0 10^3/ul; Eosinophil % 0.7 % (0-6); Hematocrit 26 % (35-47); Hemoglobin 8.8 g/dl (12.0-16.0); Lymphocyte % 11.3 % (25-47); Mean Corpuscular HGB Conc 35 g/dl (31-36); Mean Corpuscular Hemoglobin 29 pg (27-31); Mean Corpuscular Volume 83 fL (80-97); Mean Platelet Volume 6.2 um3 (7.4-10.4); Nucleated Red Blood Cells % 0.1; Platelet Count 470 10^3/ul (150-450); Red Blood Count 3.09 10^6/ul (4.00-5.40); Red Cell Distribution Width 13 % (10.5-15); White Blood Count 8.2 10^3/ul (3.5-10.8)
[2017-10-23 06:31] LABS: EGFR Non-African American 96.9 (>60)
[2017-10-23] MEDS: Vancomycin(*) 1,000 MG in NS 0.9% 250 ML* 250 ML IVPB SCH (06:40)
[2017-10-23] MEDS: Insulin LISPRO* 1 UNITS UNIT SUBCUT SCH ×3 (07:54→16:57)
[2017-10-23] MEDS ORDERED: Perflutren Lipid Microsphere* 3 ML VIAL ONE (08:42)
[2017-10-23] MEDS: Cefepime 2 GM in Dextrose(*) 2 GM/50 ML BAG IV SCH ×2 (10:04→20:03)
[2017-10-23] MEDS: Ondansetron INJ* 2 MG/ML VIAL IV PRN (10:08)
--- NOTE | 2017-10-23 10:37 | OP ---
DATE OF OPERATION: 10/22/17 - ROOM #412 DATE OF : 51 SURGEON: Surya Lyons MD HEALTH OFFICER: JULIANE Proctor PRE-OP DIAGNOSIS: Right forefoot gangrenous, purulent infection with maggot infection. POST-OP DIAGNOSIS: Right forefoot gangrenous, purulent infection with maggot infection with significant deep soft tissue infection to the mid tarsometatarsal area on the plantar aspect. OPERATIVE PROCEDURE: Lisfranc disarticulation right midfoot. DESCRIPTION OF PROCEDURE: The patient was taken to the operating room where the sedation was administered as well as local anesthetic around the ankle. We inspected the forefoot carefully, there were copious amount of maggots between the great toe and the second toe, some greater than 15 mm in length 3 to 4 mm in thickness, basically swarming around the first and second toe and then also working their way proximally along the first, second webspace on the plantar aspect 2 to 3 cm proximally. An ankle Esmarch was used to exsanguinate the foot and then we transected the midfoot as follows, a long dorsal flap was used just back to the MTP level, but on the plantar aspect, we transected proximal to this large pocket of purulence with the insect infection. The foot was disarticulated at the base of the metatarsal level initially. This divided the plantar flap, but there was still purulent material proximally with the lack of skin coverage, so we resected the bases of the metatarsals at the Lisfranc joint. The specimen was sent to Pathology. We irrigated thoroughly and sent cultures from this level. The tourniquet was dropped and there was brisk bleeding both plantar and dorsal, which was controlled with electrocautery and local suture ligatures. We are able to close the dorsal and plantar flaps with 2-0 Vicryl sutures, interrupted 2-0 Prolene sutures. A compression plaster splint was applied. [id number]/[facility] #: [id number] [facility]
--- NOTE | 2017-10-23 11:39 | PN ---
Subjective Date of Service: 10/23/17 Interval History: Patient reports she feels a little drowsy today. She denies pain. No fever or chills. Reports good appetite. No N/V/D. She reports she understands she may need subacute rehab and long-term IV abx. Objective Active Medications: Acetaminophen (Tylenol Tab*) 650 mg PO Q4H PRN PRN Reason: FEVER/PAIN Last Admin: 10/22/17 22:47 Dose: 650 mg Dextrose (D50w Syringe 50 Ml*) 12.5 gm IV PUSH .FOR FS < 60 - SS PRN PRN Reason: FS < 60 Heparin Sodium (Porcine) (Heparin Vial(*)) 5,000 units SUBCUT Q8HR [facility] Last Admin: 10/23/17 05:24 Dose: 5,000 units Cefepime HCl (Maxipime 2 Gm In Dextrose Duplex (*)) 2 gm in 50 mls @ 100 mls/ hr IV Q12H [facility] Last Admin: 10/23/17 10:04 Dose: 100 mls/hr Metronidazole/Sodium Chloride (Flagyl 500 Mg Ivpb*) 500 mg in 100 mls @ 100 mls /hr IVPB Q8H [facility] Last Admin: 10/23/17 04:27 Dose: 100 mls/hr Sodium Chloride (Ns 0.9% 1000 Ml*) 1,000 mls @ 100 mls/hr IV PER RATE [facility] Last Admin: 10/22/17 18:25 Dose: 100 mls/hr Insulin Human Lispro (Humalog*) 0 units SUBCUT AC [facility]; Protocol Last Admin: 10/23/17 07:54 Dose: 3 units Morphine Sulfate (Morphine Vial*) 2 mg IV Q2H PRN PRN Reason: PAIN Last Admin: 10/23/17 07:27 Dose: 2 mg Ondansetron HCl (Zofran Inj*) 4 mg IV Q6H PRN PRN Reason: NAUSEA Last Admin: 10/23/17 10:08 Dose: 4 mg Pharmacy Profile Note (Vancomycin Trough Check) 1 note FOLLOW UP 629 ONE Stop: 10/24/17 06:31 Vital Signs - 8 hr 10/23/17 10/23/17 10/23/17 04:35 05:40 07:27 Respiratory 16 16 16 Rate Oxygen Devices in Use Now: None Appearance: obese female laying in bed in NAD, A+Ox3 Eyes: No Scleral Icterus, PERRLA Ears/Nose/Mouth/Throat: NL Teeth, Lips, Gums, Mucous Membranes Moist Respiratory: Symmetrical Chest Expansion and Respiratory Effort, Clear to Auscultation Cardiovascular: NL Sounds; No Murmurs; No JVD, RRR Abdominal: NL Sounds; No Tenderness; No Distention, - - obese Extremities: No Clubbing, Cyanosis, - - right transmetatarsal amputation, with CD+I dressing, no noted drainage, Skin: No Rash or Ulcers Neurological: Alert and Oriented x 3 Lines/Tubes/Other Access: Clean, Dry and Intact Peripheral IV Nutrition: Taking PO's Result Diagrams: 10/23/17 05:54 10/23/17 05:54 Microbiology and Other Data: Microbiology 10/22/17 16:40 Anaerobic Culture - Preliminary Wound - Right 10/21/17 17:32 Urine Culture - Final Urine 10/22/17 16:40 Skin and Soft Tissue MRSA/MSSA (PCR - Final Foot Right Mrsa Negative S.aureus Positive Gram Stain - Final 10/21/17 20:07 Aerobic Blood Culture - Preliminary Blood Venous No Growth Day 1 Anaerobic Blood Culture - Preliminary No Growth Day 1 10/21/17 20:07 Aerobic Blood Culture - Preliminary Blood Venous No Growth Day 1 Anaerobic Blood Culture - Preliminary No Growth Day 1 Assess/Plan/Problems-Billing Assessment: 62 yo female with uncontrolled diabetes presents to the emergency department with c/o N/V found to have a necrotic toe and sepsis. - Patient Problems (1) Gangrene Comment: - with osteo. s/p right transmetatarsal amputation 10/22 - POD #1 - MRI right LE showing "findings most consistent with osteomyletis of the right great toe and elsa metatarsal". - Appreciate Ortho consult - Dispo per Ortho - weight bearing status per Ortho team - PT/OT - will require subacute rehab - Continue Cefepime, Flagyl, Vanco - place PICC - Apprciate ID consult, following (2) Sepsis Comment: - resolved. Screening positive for sepsis on admission with tachycardia and leukocytosis. Leukocytosis is trending down 21k down to 11. CRP 149, ESR 118. No lactic acidosis. - Blood cx NTD (3) Acute kidney failure Comment: resolved with IVFs (4) Hyponatremia Comment: - Suspect multifactorial with HCTZ, vomiting and dehydration. - Improving with IVFs. - recheck labs in am (5) Diabetes Comment: - uncontrolled DM. HgA1c 10 - Hold oral medications (4 home oral medications), pt reports compliance but appears to be very uncontrolled with high HGA1C - will need close follow up, and diabetes education. - continue FSBG with Lispro SS (6) HTN (hypertension) Comment: - controlled - HCTZ on hold d/t hyponatremia. BPs currently controlled. Consider restarting lisinopril tomorrow. Continue to monitor BPs. (7) Patient is full code (8) DVT prophylaxis Comment: HSQ Status and Disposition: inpatient. Will require subacute rehab and [facility] IV abx. PICC to be placed. PT/OT
--- NOTE | 2017-10-23 11:54 | ECHO ---
Patient: AIYANA MUIR [facility] Rec#: [id number] : 1955 Date: 10/23/2017 Age: 62y Weight: kg / NaN lbs Sex: F Room#: 412-02 Admit Date#: 10/23/2017 Type: Inpatient Referring: Krystyna Armenta Reading: Audrey Alexander MD Gimp Tacker: Connie Bradford RN [facility] Transthoracic Echocardiogram Indication: Abnormal EKG BP: 132/55 HR: 70 Rhythm: NSR with PVCs Findings History: DM, HTN, HLD, right foot infection with osteomyelitis. Technical Comments: The study quality is fair. The study is technically limited due to patient body habitus. Completed at 0950. Left Ventricle: The left ventricular chamber size is normal. Mild to moderate concentric left ventricular hypertrophy is observed. There is normal left ventricular systolic function. The estimated ejection fraction is 55-60%. Normal left ventricular diastolic filling is observed. Left Atrium: The left atrium is slightly dilated. Right Ventricle: The right ventricular cavity size is normal. The right ventricular global systolic function is normal. Right Atrium: The right atrial cavity size is normal. Aortic Valve: The aortic valve is trileaflet. There is evidence of aortic sclerosis without stenosis. There is no evidence of aortic regurgitation. Mitral Valve: The mitral valve leaflets are mildly thickened. There is trace to mild mitral regurgitation. There is no evidence of mitral stenosis. Tricuspid Valve: The tricuspid valve leaflets are normal. There is trace tricuspid regurgitation. Unable to estimate the right ventricular systolic pressure. There is no tricuspid stenosis. Pulmonic Valve: The pulmonic valve appears normal. There is mild pulmonic regurgitation. There is no pulmonic stenosis. Pericardium: There is no significant pericardial effusion. A pericardial fat pad is visualized. Aorta: There is mild dilatation of the ascending aorta. There is no dilatation of the aortic arch. There is no dilation of the aortic root. Pulmonary Artery: The main pulmonary artery appears normal. Venous: The inferior vena cava is dilated. There is an approximate 50% respiratory change in the inferior vena cava dimension. Contrast: Definity was used to optimize study. A total of 4 ml of diluted Definity was given IV to enhance endocardial border definition. Conclusions Mild to moderate concentric left ventricular hypertrophy is observed. There is normal left ventricular systolic function, borderline chamber dilatation. The estimated ejection fraction is 55-60%. The right ventricular global systolic function is normal. There is evidence of aortic sclerosis without stenosis. There is trace to mild mitral regurgitation. There is trace tricuspid regurgitation. There is mild pulmonic regurgitation. There is mild dilatation of the ascending aorta. No prior echo to compare. Measurements Name Value Normal Range RVIDd (AP) 2D 3.6 cm (0.9 - 2.6) RVDdMajor (2D) 3.9 cm (2.2 - 4.4) RAd ISD 4CH 4.4 cm (3.4 - 4.9) RA (A4C)W 4.2 cm (2.9 - 4.6) IVSd (2D) 1.5 cm (0.6 - 1) LVPWd (2D) 1.2 cm (0.6 - 1) LVIDd (2D) 4.3 cm (3.6 - 5.4) LVIDs (2D) 2.9 cm - LV FS (2D) 33 % (25 - 45) Aortic Annulus 2.1 cm (1.4 - 2.6) Ao root diameter (2D) 3 cm (2.1 - 3.5) Ascending Ao 3.5 cm (2.1 - 3.4) Aortic arch 2.7 cm (1.8 - 3.4) LA dimension (AP) 2D 4 cm (2.3 - 3.8) LAd ISD 4CH 5.3 cm (2.9 - 5.3) LA ISD 4CH W 4.7 cm (2.5 - 4.5) Name Value Normal Range LA ESV SP 4CH (A/L) 69 ml - LA ESV SP 2CH (A/L) 71 ml - LA ESV BP (A/L) 72 ml - LA ESV BP (A/L) index 31 ml/m2 - LA ESV SP 4CH (MOD) 63 ml - LA ESV SP 2CH (MOD) 69 ml - Name Value Normal Range MV E-wave Vmax 0.97 m/sec - MV deceleration time 213 msec - MV A-wave Vmax 0.88 m/sec - MV E:A ratio 1.1 ratio - LV septal e' Vmax 0.1 m/sec - LV lateral e' Vmax 0.12 m/sec - LV E:e' septal ratio 9.7 ratio - LV E:e' lateral ratio 8.1 ratio - Name Value Normal Range AV Vmax 1.3 m/sec - AV VTI 27.9 cm - AV peak gradient 6.3 mmHg - AV mean gradient 4 mmHg - LVOT Vmax 0.87 m/sec - LVOT VTI 22.4 cm - LVOT peak gradient 3 mmHg - LVOT mean gradient 2 mmHg - CHRIS Vmax 0.88 m/sec - Name Value Normal Range IVC diameter 2.4 cm - Name Value Normal Range PV Vmax 0.84 m/sec -
[2017-10-23] MEDS: NS 0.9% 1000 ML* 1,000 ML IV SCH (12:21)
[2017-10-23] MEDS ORDERED: Vancomycin(*) 1,000 MG in NS 0.9% 250 ML* 250 ML IVPB SCH (12:30)
--- NOTE | 2017-10-23 13:13 | PN ---
Progress Note - Progress Note Date of Service: 10/23/17 SOAP: Subjective: []Patient seen at bedside. She is feeling well without chest pain, shortness of breath =, nausea or dizziness. She does not feel febrile or have chills. Objective: [] Vital Signs Temp 98.0 F 10/23/17 11:00 Pulse 94 10/23/17 11:00 Resp 16 10/23/17 12:31 BP 135/47 10/23/17 11:00 Pulse Ox 97 10/23/17 11:00 Intake & Output 10/22/17 10/23/17 10/23/17 18:59 06:59 18:59 Intake Total 750 1073 1240 Output Total 0 Balance 750 1073 1240 Intake: IV Fluids 500 553 LR 500 NS (0.9%) 553 IVPB 520 ABX - CEFEPIME 55 ABX - FLAGYL 210 ABX - VANCOMYCIN 255 Oral 250 0 1240 Output: Urine 0 Other: Date of Last Bowel unknown Movement # Bowel Movements 0 0 1 Estimated Stool Amount Medium # Voids 2 0 Laboratory Last Values WBC 8.2 10^3/ul (3.5-10.8) 10/23/17 05:54 RBC 3.09 10^6/ul (4.00-5.40) L 10/23/17 05:54 Hgb 8.8 g/dl (12.0-16.0) L 10/23/17 05:54 Hct 26 % (35-47) L 10/23/17 05:54 MCV 83 fL (80-97) 10/23/17 05:54 MCH 29 pg (27-31) 10/23/17 05:54 MCHC 35 g/dl (31-36) 10/23/17 05:54 RDW 13 % (10.5-15) 10/23/17 05:54 Plt Count 470 10^3/ul (150-450) H D 10/23/17 05:54 MPV 6.2 um3 (7.4-10.4) L 10/23/17 05:54 Neut % (Auto) 78.3 % (38-83) 10/23/17 05:54 Lymph % (Auto) 11.3 % (25-47) L 10/23/17 05:54 [place] % (Auto) 9.3 % (0-7) H 10/23/17 05:54 Eos % (Auto) 0.7 % (0-6) 10/23/17 05:54 Baso % (Auto) 0.4 % (0-2) 10/23/17 05:54 Absolute Neuts (auto) 6.4 10^3/ul (1.5-7.7) 10/23/17 05:54 Absolute Lymphs (auto) 0.9 10^3/ul (1.0-4.8) L 10/23/17 05:54 Absolute Monos (auto) 0.8 10^3/ul (0-0.8) 10/23/17 05:54 Absolute Eos (auto) 0.1 10^3/ul (0-0.6) 10/23/17 05:54 Absolute Basos (auto) 0 10^3/ul (0-0.2) 10/23/17 05:54 Absolute Nucleated RBC 0 10^3/ul 10/23/17 05:54 Nucleated RBC % 0.1 10/23/17 05:54 ESR 118 mm/Hr (0-30) H 10/21/17 16:17 INR (Anticoag Therapy) 1.37 (0.77-1.02) H 10/22/17 19:20 VBG pH 7.40 (7.33-7.43) 10/21/17 16:19 VBG pCO2 46 mmHg (41-51) 10/21/17 16:19 VBG pO2 21 mmHg (35-45) L 10/21/17 16:19 VBG HCO3 26.1 mmol/L (24-28) 10/21/17 16:19 VBG O2 Saturation 35.7 % (70-80) L 10/21/17 16:19 VBG Base Excess 3.2 (0-4) 10/21/17 16:19 Sodium 132 mmol/L (135-145) L 10/23/17 05:54 Potassium 3.9 mmol/L (3.5-5.0) 10/23/17 05:54 Chloride 100 mmol/L (101-111) L 10/23/17 05:54 Carbon Dioxide 26 mmol/L (22-32) 10/23/17 05:54 Anion Gap 6 mmol/L (2-11) 10/23/17 05:54 BUN 18 mg/dL (6-24) 10/23/17 05:54 Creatinine 0.62 mg/dL (0.51-0.95) 10/23/17 05:54 Est GFR ( Amer) 117.3 (>60) 10/23/17 05:54 Est GFR (Non-Af Amer) 96.9 (>60) 10/23/17 05:54 BUN/Creatinine Ratio 29.0 (8-20) H 10/23/17 05:54 Glucose 123 mg/dL (70-100) H 10/23/17 05:54 POC Glucose (mg/dL) 274 mg/dL (70-100) H 10/23/17 11:39 Hemoglobin A1c 10.1 % (4.0-5.6) H 10/22/17 05:49 Serum Osmolality 298 mOsm/kg (275-295) H 10/21/17 16:17 Lactic Acid 1.2 mmol/L (0.5-2.0) 10/21/17 16:17 Calcium 8.0 mg/dL (8.6-10.3) L 10/23/17 05:54 Total Bilirubin 0.50 mg/dL (0.2-1.0) 10/21/17 16:17 AST 35 U/L (13-39) 10/21/17 16:17 ALT 51 U/L (7-52) 10/21/17 16:17 Alkaline Phosphatase 82 U/L (34-104) 10/21/17 16:17 Troponin I 0.00 ng/mL (<0.04) 10/21/17 16:17 C-Reactive Protein 149.13 mg/L (<8.01) H 10/21/17 16:17 Total Protein 7.7 g/dL (6.4-8.9) 10/21/17 16:17 Albumin 3.1 g/dL (3.2-5.2) L 10/21/17 16:17 Globulin 4.6 g/dL (2-4) H 10/21/17 16:17 Albumin/Globulin Ratio 0.7 (1-3) L 10/21/17 16:17 TSH 0.76 mcIU/mL (0.34-5.60) 10/21/17 16:17 Cortisol 21.67 mcg/dL 10/21/17 16:17 Urine Color Avani 10/21/17 17:32 Urine Appearance Turbid 10/21/17 17:32 Urine pH 5.0 (5-9) 10/21/17 17:32 Ur Specific [place] 1.024 (1.010-1.030) 10/21/17 17:32 Urine Protein 2+(100 mg/dl) (Negative) A 10/21/17 17:32 Urine Ketones Trace (Negative) A 10/21/17 17:32 Urine Blood 2+ (Negative) A 10/21/17 17:32 Urine Nitrate Negative (Negative) 10/21/17 17:32 Urine Bilirubin Negative (Negative) 10/21/17 17:32 Urine Urobilinogen Negative (Negative) 10/21/17 17:32 Ur Leukocyte Esterase 3+ (Negative) A 10/21/17 17:32 Urine WBC (Auto) 3+(>20/hpf) (Absent) A 10/21/17 17:32 Urine RBC (Auto) 3+(>10/hpf) (Absent) A 10/21/17 17:32 Ur Squamous Epith Cells Present (Absent) A 10/21/17 17:32 Urine Bacteria 3+ (Absent) A 10/21/17 17:32 Urine Glucose 3+(>=500 mg/dl) (Negative) A 10/21/17 17:32 Vancomycin Trough 9.8 mcg/mL 10/23/17 05:54 General: Well appearing, NAD RLE: Dressing/ splint CDI. No erythema or edema proximally. LLE: Calf soft and supple without erythema or edema. Assessment: []POD 1 S/P right midfoot amputation Plan: []NWB RLE, splint to remain CDI Will need to check wound before discharge, first wound check tentatively wednesday 10/25 if still in house OOB with assistance PT/OT PICC placed today
[2017-10-23] MEDS: Acetaminophen TAB* 325 MG PO PRN (20:03)
[2017-10-24] MEDS: NS 0.9% 1000 ML* 1,000 ML IV SCH (01:58)
[2017-10-24] MEDS: metroNIDAZOLE IV 500 MG/100ML* 500 MG/100 ML BAG IVPB SCH ×3 (04:38→20:43)
[2017-10-24] MEDS: Heparin VIAL(*) 5000 UNITS/ML VIAL (FIVE THOUSAND) SUBCUT SCH ×3 (05:33→21:57)
[2017-10-24 06:08] LABS: ABS Basophils 0 10^3/ul (0-0.2); ABS Eosinophils 0.1 10^3/ul (0-0.6); ABS Lymphocytes 0.8 10^3/ul (1.0-4.8); ABS Monocytes 0.7 10^3/ul (0-0.8); ABS Neutrophils 6.9 10^3/ul (1.5-7.7); ABS Nucleated RBC 0 10^3/ul; Eosinophil % 0.7 % (0-6); Hematocrit 27 % (35-47); Hemoglobin 9.1 g/dl (12.0-16.0); Lymphocyte % 9.7 % (25-47); Mean Corpuscular HGB Conc 34 g/dl (31-36); Mean Corpuscular Hemoglobin 28 pg (27-31); Mean Corpuscular Volume 83 fL (80-97); Mean Platelet Volume 6.3 um3 (7.4-10.4); Nucleated Red Blood Cells % 0.1; Platelet Count 468 10^3/ul (150-450); Red Blood Count 3.27 10^6/ul (4.00-5.40); Red Cell Distribution Width 14 % (10.5-15); White Blood Count 8.5 10^3/ul (3.5-10.8)
[2017-10-24] MEDS ORDERED: Vancomycin Trough Check NOTE FOLLOW UP ONE (06:30)
[2017-10-24] MEDS: Ondansetron INJ* 2 MG/ML VIAL IV PRN (08:50)
[2017-10-24] MEDS: Cefepime 2 GM in Dextrose(*) 2 GM/50 ML BAG IV SCH (08:50)
[2017-10-24] MEDS: Insulin LISPRO* 1 UNITS UNIT SUBCUT SCH ×3 (08:50→17:50)
--- NOTE | 2017-10-24 09:39 | PN ---
Progress Note - Progress Note Date of Service: 10/24/17 SOAP: Subjective: []Patient seen at bedside. She has no complaints today. Objective: [] Vital Signs Temp 97.9 F 10/24/17 03:46 Pulse 71 10/24/17 03:46 Resp 16 10/24/17 03:46 BP 139/61 10/24/17 03:46 Pulse Ox 97 10/24/17 09:26 Intake & Output 10/23/17 10/24/17 10/24/17 18:59 06:59 18:59 Intake Total 1480 200 360 Output Total 600 Balance 1480 -400 360 Intake: IVPB 200 ABX - FLAGYL 200 Oral 1480 0 360 Output: Urine 600 Other: Estimated Void Medium # Bowel Movements 1 0 Estimated Stool Amount Medium # Voids 1 Laboratory Last Values WBC 8.5 10^3/ul (3.5-10.8) 10/24/17 05:51 RBC 3.27 10^6/ul (4.00-5.40) L 10/24/17 05:51 Hgb 9.1 g/dl (12.0-16.0) L 10/24/17 05:51 Hct 27 % (35-47) L 10/24/17 05:51 MCV 83 fL (80-97) 10/24/17 05:51 MCH 28 pg (27-31) 10/24/17 05:51 MCHC 34 g/dl (31-36) 10/24/17 05:51 RDW 14 % (10.5-15) 10/24/17 05:51 Plt Count 468 10^3/ul (150-450) H 10/24/17 05:51 MPV 6.3 um3 (7.4-10.4) L 10/24/17 05:51 Neut % (Auto) 80.8 % (38-83) 10/24/17 05:51 Lymph % (Auto) 9.7 % (25-47) L 10/24/17 05:51 [place] % (Auto) 8.4 % (0-7) H 10/24/17 05:51 Eos % (Auto) 0.7 % (0-6) 10/24/17 05:51 Baso % (Auto) 0.4 % (0-2) 10/24/17 05:51 Absolute Neuts (auto) 6.9 10^3/ul (1.5-7.7) 10/24/17 05:51 Absolute Lymphs (auto) 0.8 10^3/ul (1.0-4.8) L 10/24/17 05:51 Absolute Monos (auto) 0.7 10^3/ul (0-0.8) 10/24/17 05:51 Absolute Eos (auto) 0.1 10^3/ul (0-0.6) 10/24/17 05:51 Absolute Basos (auto) 0 10^3/ul (0-0.2) 10/24/17 05:51 Absolute Nucleated RBC 0 10^3/ul 10/24/17 05:51 Nucleated RBC % 0.1 10/24/17 05:51 ESR 118 mm/Hr (0-30) H 10/21/17 16:17 INR (Anticoag Therapy) 1.37 (0.77-1.02) H 10/22/17 19:20 VBG pH 7.40 (7.33-7.43) 10/21/17 16:19 VBG pCO2 46 mmHg (41-51) 10/21/17 16:19 VBG pO2 21 mmHg (35-45) L 10/21/17 16:19 VBG HCO3 26.1 mmol/L (24-28) 10/21/17 16:19 VBG O2 Saturation 35.7 % (70-80) L 10/21/17 16:19 VBG Base Excess 3.2 (0-4) 10/21/17 16:19 Sodium 130 mmol/L (135-145) L 10/24/17 05:51 Potassium 4.0 mmol/L (3.5-5.0) 10/24/17 05:51 Chloride 100 mmol/L (101-111) L 10/24/17 05:51 Carbon Dioxide 25 mmol/L (22-32) 10/24/17 05:51 Anion Gap 5 mmol/L (2-11) 10/24/17 05:51 BUN 14 mg/dL (6-24) 10/24/17 05:51 Creatinine 0.56 mg/dL (0.51-0.95) 10/24/17 05:51 Est GFR ( Amer) 131.9 (>60) 10/24/17 05:51 Est GFR (Non-Af Amer) 109.0 (>60) 10/24/17 05:51 BUN/Creatinine Ratio 25.0 (8-20) H 10/24/17 05:51 Glucose 226 mg/dL (70-100) H 10/24/17 05:51 POC Glucose (mg/dL) 246 mg/dL (70-100) H 10/24/17 08:27 Hemoglobin A1c 10.1 % (4.0-5.6) H 10/22/17 05:49 Serum Osmolality 298 mOsm/kg (275-295) H 10/21/17 16:17 Lactic Acid 1.2 mmol/L (0.5-2.0) 10/21/17 16:17 Calcium 7.9 mg/dL (8.6-10.3) L 10/24/17 05:51 Magnesium 1.1 mg/dL (1.9-2.7) L 10/24/17 05:51 Total Bilirubin 0.50 mg/dL (0.2-1.0) 10/21/17 16:17 AST 35 U/L (13-39) 10/21/17 16:17 ALT 51 U/L (7-52) 10/21/17 16:17 Alkaline Phosphatase 82 U/L (34-104) 10/21/17 16:17 Troponin I 0.00 ng/mL (<0.04) 10/21/17 16:17 C-Reactive Protein 149.13 mg/L (<8.01) H 10/21/17 16:17 Total Protein 7.7 g/dL (6.4-8.9) 10/21/17 16:17 Albumin 3.1 g/dL (3.2-5.2) L 10/21/17 16:17 Globulin 4.6 g/dL (2-4) H 10/21/17 16:17 Albumin/Globulin Ratio 0.7 (1-3) L 10/21/17 16:17 TSH 0.76 mcIU/mL (0.34-5.60) 10/21/17 16:17 Cortisol 21.67 mcg/dL 10/21/17 16:17 Urine Color Avani 10/21/17 17:32 Urine Appearance Turbid 10/21/17 17:32 Urine pH 5.0 (5-9) 10/21/17 17:32 Ur Specific [place] 1.024 (1.010-1.030) 10/21/17 17:32 Urine Protein 2+(100 mg/dl) (Negative) A 10/21/17 17:32 Urine Ketones Trace (Negative) A 10/21/17 17:32 Urine Blood 2+ (Negative) A 10/21/17 17:32 Urine Nitrate Negative (Negative) 10/21/17 17:32 Urine Bilirubin Negative (Negative) 10/21/17 17:32 Urine Urobilinogen Negative (Negative) 10/21/17 17:32 Ur Leukocyte Esterase 3+ (Negative) A 10/21/17 17:32 Urine WBC (Auto) 3+(>20/hpf) (Absent) A 10/21/17 17:32 Urine RBC (Auto) 3+(>10/hpf) (Absent) A 10/21/17 17:32 Ur Squamous Epith Cells Present (Absent) A 10/21/17 17:32 Urine Bacteria 3+ (Absent) A 10/21/17 17:32 Urine Glucose 3+(>=500 mg/dl) (Negative) A 10/21/17 17:32 Vancomycin Trough 9.8 mcg/mL 10/23/17 05:54 General: Well appearing, NAD RLE: Dressing/ splint CDI. No erythema or edema proximally. LLE: Calf soft and supple without erythema or edema. Assessment: []POD 2 S/P right midfoot amputation Plan: []NWB RLE, splint to remain CDI Will need to check wound before discharge, first wound check wednesday 10/25 OOB with assistance PT/OT Continue IV abx with guidance of ID: today change cefepime to ancef 2 gm IV Q8hrs and continue flagyl 500 mg IV Q8hrs; day 05/29, can use ceftriaxone 2 gm daily and flagyl 500 mg po BID for discharge.
--- NOTE | 2017-10-24 10:25 | PN ---
Progress Note - Progress Note Date of Service: 10/24/17 SOAP: Subjective: CC: gangrene HPI: 62 year old diabetic with vascular disease with right forefoot gangrene and osteomyelitis, tolerated amputation well. Appetite is good. No fever, rash , or diarrhea. Objective: Vital Signs Temp 36.6 C 10/24/17 07:46 Pulse 67 10/24/17 07:46 Resp 17 10/24/17 07:46 BP 140/57 10/24/17 07:46 Pulse Ox 97 10/24/17 09:26 Intake & Output 10/23/17 10/24/17 10/24/17 18:59 06:59 18:59 Intake Total 1480 200 360 Output Total 600 Balance 1480 -400 360 Intake: IVPB 200 ABX - FLAGYL 200 Oral 1480 0 360 Output: Urine 600 Other: Estimated Void Medium # Bowel Movements 1 0 Estimated Stool Amount Medium # Voids 1 Gen:awake, no distress HEENT: no thrush Heart:RRR no murmur Lungs:CTA BL Abd:+BS NTND soft Skin: no rash MSK: no spine tenderness; R foot dressed Microbiology 10/21/17 20:07 Blood Venous Aerobic Blood Culture - Preliminary No Growth Day 2 10/21/17 20:07 Blood Venous Anaerobic Blood Culture - Preliminary No Growth Day 2 10/21/17 20:07 Blood Venous Aerobic Blood Culture - Preliminary No Growth Day 2 10/21/17 20:07 Blood Venous Anaerobic Blood Culture - Preliminary No Growth Day 2 10/22/17 16:40 Foot Right Skin and Soft Tissue MRSA/MSSA (PCR - Final Mrsa Negative S.aureus Positive 10/22/17 16:40 Foot Right Gram Stain - Final 10/22/17 16:40 Foot Right Wound Culture - Preliminary Strep Agalactiae - (Group B) 10/22/17 16:40 Wound - Right Anaerobic Culture - Preliminary 10/21/17 17:32 Urine Urine Culture - Final Laboratory Results - last 24 hr 10/23/17 10/23/17 10/24/17 11:39 16:29 05:51 WBC 8.5 RBC 3.27 L Hgb 9.1 L Hct 27 L MCV 83 MCH 28 MCHC 34 RDW 14 Plt Count 468 H MPV 6.3 L Neut % (Auto) 80.8 Lymph % (Auto) 9.7 L [place] % (Auto) 8.4 H Eos % (Auto) 0.7 Baso % (Auto) 0.4 Absolute Neuts (auto) 6.9 Absolute Lymphs (auto) 0.8 L Absolute Monos (auto) 0.7 Absolute Eos (auto) 0.1 Absolute Basos (auto) 0 Absolute Nucleated RBC 0 Nucleated RBC % 0.1 Sodium Potassium Chloride Carbon Dioxide Anion Gap BUN Creatinine Est GFR ( Amer) Est GFR (Non-Af Amer) BUN/Creatinine Ratio Glucose POC Glucose (mg/dL) 274 H 324 H Calcium Magnesium 10/24/17 10/24/17 05:51 08:27 WBC RBC Hgb Hct MCV MCH MCHC RDW Plt Count MPV Neut % (Auto) Lymph % (Auto) [place] % (Auto) Eos % (Auto) Baso % (Auto) Absolute Neuts (auto) Absolute Lymphs (auto) Absolute Monos (auto) Absolute Eos (auto) Absolute Basos (auto) Absolute Nucleated RBC Nucleated RBC % Sodium 130 L Potassium 4.0 Chloride 100 L Carbon Dioxide 25 Anion Gap 5 BUN 14 Creatinine 0.56 Est GFR ( Amer) 131.9 Est GFR (Non-Af Amer) 109.0 BUN/Creatinine Ratio 25.0 H Glucose 226 H POC Glucose (mg/dL) 246 H Calcium 7.9 L Magnesium 1.1 L Assessment: 1. 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 Diabetes with neuropathy 3. encephalopathy, present on admission, resolved 4. obesity Plan: 1. change cefepime to ancef 2 gm IV Q8hrs and continue flagyl 500 mg IV Q8hrs; day 05/29, can use ceftriaxone 2 gm daily and flagyl 500 mg po BID for discharge.
[2017-10-24] MEDS: ceFAZolin 2 GM PREMIX (*) 2 GM/50 ML BAG IVPB SCH ×2 (11:47→17:50)
--- NOTE | 2017-10-24 13:25 | PN ---
Subjective Date of Service: 10/24/17 Interval History: Pt reports she feels a little better today. Pain is controlled. no fever or chills. reports mild nausea this am and vomited x1 after she ate. She states she thinks she ate too fast. Overall is feeling like she is doing well emotionally about losing her toes/foot she is very motivated to get back to exercising/swimming ect. Objective Active Medications: Acetaminophen (Tylenol Tab*) 650 mg PO Q4H PRN PRN Reason: FEVER/PAIN Last Admin: 10/23/17 20:03 Dose: 650 mg Dextrose (D50w Syringe 50 Ml*) 12.5 gm IV PUSH .FOR FS < 60 - SS PRN PRN Reason: FS < 60 Heparin Sodium (Porcine) (Heparin Vial(*)) 5,000 units SUBCUT Q8HR [facility] Last Admin: 10/24/17 05:33 Dose: 5,000 units Heparin Sodium (Porcine) (Heparin Flush Picc/Ml/Cvc(*)) 1 ml FLUSH 0600,1800 [facility]; Protocol Last Admin: 10/24/17 05:34 Dose: Not Given Metronidazole/Sodium Chloride (Flagyl 500 Mg Ivpb*) 500 mg in 100 mls @ 100 mls /hr IVPB Q8H [facility] Last Admin: 10/24/17 12:38 Dose: 100 mls/hr Sodium Chloride (Ns 0.9% 1000 Ml*) 1,000 mls @ 100 mls/hr IV PER RATE [facility] Last Admin: 10/24/17 01:58 Dose: 100 mls/hr Cefazolin Sodium/Dextrose (Kefzol 2 Gm Premix(*)) 2 gm in 50 mls @ 100 mls/hr IVPB Q8H [facility] Last Admin: 10/24/17 11:47 Dose: 100 mls/hr Insulin Human Lispro (Humalog*) 0 units SUBCUT AC [facility]; Protocol Last Admin: 10/24/17 12:39 Dose: 6 units Morphine Sulfate (Morphine Vial*) 2 mg IV Q2H PRN PRN Reason: PAIN Last Admin: 10/23/17 20:03 Dose: 2 mg Ondansetron HCl (Zofran Inj*) 4 mg IV Q6H PRN PRN Reason: NAUSEA Last Admin: 10/24/17 08:50 Dose: 4 mg Vital Signs - 8 hr 10/24/17 10/24/17 10/24/17 07:46 08:00 09:26 Temperature 97.8 F Pulse Rate 67 Respiratory 17 18 Rate Blood Pressure 140/57 (mmHg) O2 Sat by Pulse 98 97 97 Oximetry 10/24/17 10:47 Temperature 98.0 F Pulse Rate 73 Respiratory 17 Rate Blood Pressure 145/62 (mmHg) O2 Sat by Pulse 100 Oximetry Oxygen Devices in Use Now: None Appearance: 62 yo female laying n bed A+Ox3 in NAD Eyes: No Scleral Icterus, PERRLA Ears/Nose/Mouth/Throat: NL Teeth, Lips, Gums, Mucous Membranes Moist Neck: NL Appearance and Movements; NL JVP Respiratory: Symmetrical Chest Expansion and Respiratory Effort, Clear to Auscultation Cardiovascular: NL Sounds; No Murmurs; No JVD, RRR, No Edema Abdominal: NL Sounds; No Tenderness; No Distention, - - obese Extremities: - - Right transmetarsal amputation with CD+I bandage Neurological: Alert and Oriented x 3, NL Muscle Strength and Tone Lines/Tubes/Other Access: Clean, Dry and Intact Peripheral IV Nutrition: Taking PO's Result Diagrams: 10/24/17 05:51 10/24/17 05:51 Microbiology and Other Data: Microbiology 10/22/17 16:40 Anaerobic Culture - Preliminary Wound - Right 10/21/17 17:32 Urine Culture - Final Urine 10/22/17 16:40 Skin and Soft Tissue MRSA/MSSA (PCR - Final Foot Right Mrsa Negative S.aureus Positive Gram Stain - Final 10/21/17 20:07 Aerobic Blood Culture - Preliminary Blood Venous No Growth Day 1 Anaerobic Blood Culture - Preliminary No Growth Day 1 10/21/17 20:07 Aerobic Blood Culture - Preliminary Blood Venous No Growth Day 1 Anaerobic Blood Culture - Preliminary No Growth Day 1 Assess/Plan/Problems-Billing Assessment: 62 yo female with uncontrolled diabetes presents to the emergency department with c/o N/V found to have a necrotic toe and sepsis. - Patient Problems (1) Gangrene Comment: - with vascular disease and osteo. - Dispo per Ortho - s/p right transmetatarsal amputation 10/22 - POD #2 - MRI right LE showing "findings most consistent with osteomyletis of the right great toe and elsa metatarsal". -non- weight bearing status per Ortho team - PT/OT - will require subacute rehab - Apprciate ID consult, following - Continue with ancef 2gms IV Q8hrs and Flagyl Day 2, On discharged: flagyl 500 mg BID and and ceftriaxone 2gms Q24 hrs (2) Electrolyte abnormality Comment: - Magnesium 1.1 - give replacement now, recheck in am (3) Sepsis Comment: - resolved. Screening positive for sepsis on admission with tachycardia and leukocytosis. Leukocytosis is trending down 21k down to 11. CRP 149, ESR 118. No lactic acidosis. - Blood cx NTD (4) Acute kidney failure Comment: resolved with IVFs (5) Hyponatremia Comment: - Suspect multifactorial with HCTZ, vomiting and dehydration. - Improving with IVFs. - recheck labs in am (6) Diabetes Comment: - uncontrolled DM. HgA1c 10 - Hold oral medications (4 home oral medications), pt reports compliance but appears to be very uncontrolled with high HGA1C - will need close follow up, and diabetes education. - continue FSBG with Lispro SS - added lantus (7) HTN (hypertension) Comment: - restart lisinopril, continue to hold HCTZ on hold d/t hyponatremia. (8) Patient is full code (9) DVT prophylaxis Comment: HSQ Status and Disposition: inpatient. Will require subacute rehab and residential IV abx. PICC. PT/OT
[2017-10-24] MEDS ORDERED: Magnesium Sulfate IV* 3 GM in NS 0.9% 100 ML* 100 ML IVPB ONE (13:26)
[2017-10-24] MEDS ORDERED: Lisinopril TAB* 10 MG PO ONE (13:29)
[2017-10-24] MEDS ORDERED: Insulin GLARGINE(*) 1 UNITS UNIT SUBCUT SCH (21:00)
[2017-10-25] MEDS: ceFAZolin 2 GM PREMIX (*) 2 GM/50 ML BAG IVPB SCH ×3 (02:47→18:13)
[2017-10-25] MEDS: metroNIDAZOLE IV 500 MG/100ML* 500 MG/100 ML BAG IVPB SCH ×3 (05:00→20:34)
[2017-10-25] MEDS: Heparin VIAL(*) 5000 UNITS/ML VIAL (FIVE THOUSAND) SUBCUT SCH ×3 (06:15→21:30)
[2017-10-25 06:32] LABS: ABS Basophils 0 10^3/ul (0-0.2); ABS Eosinophils 0.1 10^3/ul (0-0.6); ABS Lymphocytes 1.1 10^3/ul (1.0-4.8); ABS Monocytes 0.7 10^3/ul (0-0.8); ABS Neutrophils 7.4 10^3/ul (1.5-7.7); ABS Nucleated RBC 0 10^3/ul; Eosinophil % 0.7 % (0-6); Hematocrit 27 % (35-47); Hemoglobin 9.2 g/dl (12.0-16.0); Mean Corpuscular HGB Conc 35 g/dl (31-36); Mean Corpuscular Hemoglobin 29 pg (27-31); Mean Corpuscular Volume 83 fL (80-97); Mean Platelet Volume 6.3 um3 (7.4-10.4); Nucleated Red Blood Cells % 0; Platelet Count 440 10^3/ul (150-450); Red Blood Count 3.24 10^6/ul (4.00-5.40); Red Cell Distribution Width 14 % (10.5-15); White Blood Count 9.3 10^3/ul (3.5-10.8)
[2017-10-25 06:49] LABS: EGFR Non-African American 98.7 (>60)
[2017-10-25] MEDS: Lisinopril TAB* 10 MG PO SCH (08:35)
[2017-10-25] MEDS: Insulin LISPRO* 1 UNITS UNIT SUBCUT SCH ×3 (08:35→18:13)
[2017-10-25] MEDS: Ondansetron INJ* 2 MG/ML VIAL IV PRN (08:35)
--- NOTE | 2017-10-25 10:52 | PN ---
Progress Note - Progress Note Date of Service: 10/25/17 SOAP: Subjective: Pt is doing well. Pain is controlled. Doing well with physical therapy. Denies F /C, CP/SOB Objective: PE- 62 y/o WDWN F NAD, A&Ox3 RLE- dressing changed, healing incision with no purulent discharge, min erythema , calf soft NT, NVI Vital Signs Temp Pulse Resp BP Pulse Ox 98.0 F 72 21 146/61 97 10/25/17 07:18 10/25/17 07:18 10/25/17 07:18 10/25/17 07:18 10/25/17 08:00 Laboratory Results - last 24 hr 10/24/17 10/24/17 10/25/17 11:47 17:12 06:25 WBC RBC Hgb Hct MCV MCH MCHC RDW Plt Count MPV Neut % (Auto) Lymph % (Auto) [place] % (Auto) Eos % (Auto) Baso % (Auto) Absolute Neuts (auto) Absolute Lymphs (auto) Absolute Monos (auto) Absolute Eos (auto) Absolute Basos (auto) Absolute Nucleated RBC Nucleated RBC % Sodium 131 L Potassium 4.0 Chloride 99 L Carbon Dioxide 29 Anion Gap 3 BUN 10 Creatinine 0.61 Est GFR ( Amer) 119.5 Est GFR (Non-Af Amer) 98.7 BUN/Creatinine Ratio 16.4 Glucose 241 H POC Glucose (mg/dL) 249 H 359 H Calcium 7.8 L Magnesium 1.4 L 10/25/17 10/25/17 06:25 07:42 WBC 9.3 RBC 3.24 L Hgb 9.2 L Hct 27 L MCV 83 MCH 29 MCHC 35 RDW 14 Plt Count 440 MPV 6.3 L Neut % (Auto) 79.5 Lymph % (Auto) 12.0 L [place] % (Auto) 7.3 H Eos % (Auto) 0.7 Baso % (Auto) 0.5 Absolute Neuts (auto) 7.4 Absolute Lymphs (auto) 1.1 Absolute Monos (auto) 0.7 Absolute Eos (auto) 0.1 Absolute Basos (auto) 0 Absolute Nucleated RBC 0 Nucleated RBC % 0 Sodium Potassium Chloride Carbon Dioxide Anion Gap BUN Creatinine Est GFR ( Amer) Est GFR (Non-Af Amer) BUN/Creatinine Ratio Glucose POC Glucose (mg/dL) 266 H Calcium Magnesium Assessment: POD 3 S/P right midfoot amputation Plan: NWB RLE, splint to remain CDI Wound checked today and is healing- may need another wound check in 3-4 days if the patient is still in the hospital OOB with assistance Cont PT/OT Continue IV abx with guidance of ID: today change cefepime to ancef 2 gm IV Q8hrs and continue flagyl 500 mg IV Q8hrs; day 3/14, can use ceftriaxone 2 gm daily and flagyl 500 mg po BID for discharge. DC to rehab when medically stable and set up with abx
[2017-10-25] MEDS ORDERED: Magnesium Sulfate IV* 3 GM in NS 0.9% 100 ML* 100 ML IVPB ONE (10:56)
--- NOTE | 2017-10-25 10:57 | PN ---
Subjective Date of Service: 10/25/17 Interval History: pt reports she is doing "really well today". Denies fever or chills. No SOB/CP. Reports her appetite is improving. Feels more positive about her foot and motivated to get back to her functioning status. reports Ortho changed the bandage for the first time this am. Objective Active Medications: Acetaminophen (Tylenol Tab*) 650 mg PO Q4H PRN PRN Reason: FEVER/PAIN Last Admin: 10/23/17 20:03 Dose: 650 mg Dextrose (D50w Syringe 50 Ml*) 12.5 gm IV PUSH .FOR FS < 60 - SS PRN PRN Reason: FS < 60 Heparin Sodium (Porcine) (Heparin Vial(*)) 5,000 units SUBCUT Q8HR [facility] Last Admin: 10/25/17 06:15 Dose: 5,000 units Heparin Sodium (Porcine) (Heparin Flush Picc/Ml/Cvc(*)) 1 ml FLUSH 0600,1800 [facility]; Protocol Last Admin: 10/25/17 06:13 Dose: 1 ml Metronidazole/Sodium Chloride (Flagyl 500 Mg Ivpb*) 500 mg in 100 mls @ 100 mls /hr IVPB Q8H [facility] Last Admin: 10/25/17 05:00 Dose: 100 mls/hr Cefazolin Sodium/Dextrose (Kefzol 2 Gm Premix(*)) 2 gm in 50 mls @ 100 mls/hr IVPB Q8H [facility] Last Admin: 10/25/17 10:47 Dose: 100 mls/hr Magnesium Sulfate 3 gm/ Sodium (Chloride) 106 mls @ 53 mls/hr IVPB ONCE ONE Stop: 10/25/17 12:55 Insulin Glargine (Lantus(*)) 5 units SUBCUT Q24H [facility] Last Admin: 10/24/17 20:44 Dose: 5 units Insulin Human Lispro (Humalog*) 0 units SUBCUT AC [facility]; Protocol Last Admin: 10/25/17 08:35 Dose: 9 units Lisinopril (Prinivil Tab*) 20 mg PO DAILY [facility] Last Admin: 10/25/17 08:35 Dose: 20 mg Morphine Sulfate (Morphine Vial*) 2 mg IV Q2H PRN PRN Reason: PAIN Last Admin: 10/23/17 20:03 Dose: 2 mg Ondansetron HCl (Zofran Inj*) 4 mg IV Q6H PRN PRN Reason: NAUSEA Last Admin: 10/25/17 08:35 Dose: 4 mg Vital Signs - 8 hr 10/25/17 10/25/17 10/25/17 03:31 07:18 08:00 Temperature 98.2 F 98.0 F Pulse Rate 75 72 Respiratory 16 21 Rate Blood Pressure 145/63 146/61 (mmHg) O2 Sat by Pulse 98 97 97 Oximetry Oxygen Devices in Use Now: None Appearance: A+O x3 female in NAD Eyes: No Scleral Icterus, PERRLA Ears/Nose/Mouth/Throat: NL Teeth, Lips, Gums, Mucous Membranes Moist Neck: NL Appearance and Movements; NL JVP Respiratory: Symmetrical Chest Expansion and Respiratory Effort, Clear to Auscultation Cardiovascular: NL Sounds; No Murmurs; No JVD, RRR, No Edema Abdominal: NL Sounds; No Tenderness; No Distention Lymphatic: No Cervical Adenopathy Extremities: - - RLE s/p transmetatarsal amputation - CD+I dressing Neurological: Alert and Oriented x 3, NL Muscle Strength and Tone Lines/Tubes/Other Access: Clean, Dry and Intact PICC Line - RU arm Nutrition: Taking PO's Result Diagrams: 10/25/17 06:25 10/25/17 06:25 Microbiology and Other Data: Microbiology 10/22/17 16:40 Anaerobic Culture - Preliminary Wound - Right 10/21/17 17:32 Urine Culture - Final Urine 10/22/17 16:40 Skin and Soft Tissue MRSA/MSSA (PCR - Final Foot Right Mrsa Negative S.aureus Positive Gram Stain - Final 10/21/17 20:07 Aerobic Blood Culture - Preliminary Blood Venous No Growth Day 1 Anaerobic Blood Culture - Preliminary No Growth Day 1 10/21/17 20:07 Aerobic Blood Culture - Preliminary Blood Venous No Growth Day 1 Anaerobic Blood Culture - Preliminary No Growth Day 1 Assess/Plan/Problems-Billing Assessment: 62 yo female with uncontrolled diabetes presents to the emergency department with c/o N/V found to have a necrotic toe and sepsis. - Patient Problems (1) Gangrene Comment: - with vascular disease and osteo. - Dispo per Ortho - s/p right transmetatarsal amputation 10/22 - POD #3 - MRI right LE showing "findings most consistent with osteomyletis of the right great toe and elsa metatarsal". -non- weight bearing status per Ortho team - PT/OT - will require subacute rehab - Apprciate ID consult, following - Continue with ancef 2gms IV Q8hrs and Flagyl Day 2, On discharged: flagyl 500 mg BID and and ceftriaxone 2gms Q24 hrs (2) Sepsis Comment: - resolved. Screening positive for sepsis on admission with tachycardia and leukocytosis. Leukocytosis is trending down 21k down to 11. CRP 149, ESR 118. No lactic acidosis. - Blood cx NTD (3) Electrolyte abnormality Comment: - Magnesium 1.4 - give replacement now, recheck in am (4) Acute kidney failure Comment: resolved with IVFs (5) Hyponatremia Comment: - Suspect multifactorial with HCTZ, vomiting and dehydration. - Improving with IVFs. - recheck labs in am (6) Diabetes Comment: - uncontrolled DM. HgA1c 10 - Hold oral medications (4 home oral medications), pt reports compliance but appears to be very uncontrolled with high HGA1C - will need close follow up, and diabetes education. - continue FSBG with Lispro SS - added lantus (7) HTN (hypertension) Comment: - restart lisinopril, continue to hold HCTZ on hold d/t hyponatremia. Start Norvasc 5 mg po daily (8) Patient is full code (9) DVT prophylaxis Comment: HSQ Status and Disposition: inpatient. Will require subacute rehab and correction IV abx. PICC. PT/OT. awaiting placement
[2017-10-25] MEDS ORDERED: Insulin GLARGINE(*) 1 UNITS UNIT SUBCUT SCH (21:00)
[2017-10-26] MEDS: ceFAZolin 2 GM PREMIX (*) 2 GM/50 ML BAG IVPB SCH ×3 (02:24→17:42)
[2017-10-26] MEDS: metroNIDAZOLE IV 500 MG/100ML* 500 MG/100 ML BAG IVPB SCH ×3 (04:34→21:04)
[2017-10-26] MEDS: Heparin VIAL(*) 5000 UNITS/ML VIAL (FIVE THOUSAND) SUBCUT SCH ×3 (07:17→20:15)
[2017-10-26 07:34] LABS: ABS Basophils 0 10^3/ul (0-0.2); ABS Eosinophils 0.1 10^3/ul (0-0.6); ABS Lymphocytes 1.3 10^3/ul (1.0-4.8); ABS Monocytes 0.7 10^3/ul (0-0.8); ABS Neutrophils 7.4 10^3/ul (1.5-7.7); ABS Nucleated RBC 0 10^3/ul; Hematocrit 27 % (35-47); Hemoglobin 9.3 g/dl (12.0-16.0); Lymphocyte % 13.3 % (25-47); Mean Corpuscular HGB Conc 34 g/dl (31-36); Mean Corpuscular Hemoglobin 28 pg (27-31); Mean Corpuscular Volume 83 fL (80-97); Mean Platelet Volume 6.3 um3 (7.4-10.4); Nucleated Red Blood Cells % 0; Platelet Count 442 10^3/ul (150-450); Red Blood Count 3.28 10^6/ul (4.00-5.40); Red Cell Distribution Width 14 % (10.5-15); White Blood Count 9.4 10^3/ul (3.5-10.8)
[2017-10-26 07:50] LABS: EGFR Non-African American 102.6 (>60)
[2017-10-26] MEDS: Lisinopril TAB* 10 MG PO SCH (09:06)
[2017-10-26] MEDS: Insulin LISPRO* 1 UNITS UNIT SUBCUT SCH ×3 (09:07→17:42)
[2017-10-26] MEDS: amLODIPine TAB* 5 MG PO SCH (09:07)
--- NOTE | 2017-10-26 10:02 | PN ---
Progress Note - Progress Note Date of Service: 10/26/17 SOAP: Subjective: Pt is doing well. Pain is controlled. Doing well with physical therapy. Denies F /C, CP/SOB Objective: PE- 62 y/o WDWN F NAD, A&Ox3 RLE- dressing c/d/i. calf soft NT. Vital Signs Temp 98.1 F 10/26/17 07:34 Pulse 74 10/26/17 07:34 Resp 16 10/26/17 07:34 BP 145/63 10/26/17 07:34 Pulse Ox 97 10/26/17 07:34 Intake & Output 10/25/17 10/26/17 10/26/17 18:59 06:59 18:59 Intake Total 1783 370 Output Total 1400 1100 Balance 383 -730 Intake: IV Fluids 403 30 NS (0.9%) 30 all fluids 403 IVPB 100 ABX - FLAGYL 100 Oral 1380 240 Output: Urine 1400 1100 Other: Estimated Void Large Medium Date of Last Bowel unknown Movement # Bowel Movements 0 # Voids 1 Assessment: POD 4 S/P right midfoot amputation Plan: NWB RLE, splint to remain CDI OOB with assistance Cont PT/OT Continue IV abx with guidance of ID: today change cefepime to ancef 2 gm IV Q8hrs and continue flagyl 500 mg IV Q8hrs; day 3/14, can use ceftriaxone 2 gm daily and flagyl 500 mg po BID for discharge. DC to rehab when medically stable and set up with abx
[2017-10-26] MEDS ORDERED: Insulin GLARGINE(*) 1 UNITS UNIT SUBCUT SCH (15:46)
--- NOTE | 2017-10-26 15:54 | PN ---
Subjective Date of Service: 10/26/17 Interval History: Pt seen and examined. Meds and labs reviewed. Pt feels better and mentions she is not on O2 at home. ROS: Complains of SALAS. Denied ALBERT/dizziness, F/C, N/V, CP, SOB, increased cough , sputum production, abd pain, diarrhea, constipation, dysuria, myalgias, arthralgias, throat pain, and new skin lesions. The rest of the 14 point ROS are unremarkable. PHYSICAL EXAM: GEN APPEARANCE: Awake, not in acute distress HEENT: NC/AT, PERRLA, moist oral mucosa, (-) throat erythema NECK: Soft, supple, (-) cervical LAD, (-)JVD HEART: S1S2 WNL, RRR, No MRG CHEST: Bibasal crackles, GAE, No W/R/R ABD: Soft, ND/NT, NABS 4x Q EXT: No C/C/RLE s/p transmetatarsal amputation - CD+I dressing SKIN: Warm to touch PSYCH: No active psychosis, hallucinations, depression, SI/HI Objective Active Medications: Acetaminophen (Tylenol Tab*) 650 mg PO Q4H PRN PRN Reason: FEVER/PAIN Last Admin: 10/23/17 20:03 Dose: 650 mg Amlodipine Besylate (Norvasc Tab*) 5 mg PO DAILY [facility] Last Admin: 10/26/17 09:07 Dose: 5 mg Dextrose (D50w Syringe 50 Ml*) 12.5 gm IV PUSH .FOR FS < 60 - SS PRN PRN Reason: FS < 60 Heparin Sodium (Porcine) (Heparin Vial(*)) 5,000 units SUBCUT Q8HR [facility] Last Admin: 10/26/17 14:15 Dose: 5,000 units Heparin Sodium (Porcine) (Heparin Flush Picc/Ml/Cvc(*)) 1 ml FLUSH 0600,1800 [facility]; Protocol Last Admin: 10/26/17 14:15 Dose: 1 ml Metronidazole/Sodium Chloride (Flagyl 500 Mg Ivpb*) 500 mg in 100 mls @ 100 mls /hr IVPB Q8H [facility] Last Admin: 10/26/17 12:41 Dose: 100 mls/hr Cefazolin Sodium/Dextrose (Kefzol 2 Gm Premix(*)) 2 gm in 50 mls @ 100 mls/hr IVPB Q8H [facility] Last Admin: 10/26/17 10:21 Dose: 100 mls/hr Calcium Chloride 1 gm/ (Dextrose) 110 mls @ 55 mls/hr IV ONCE ONE Stop: 10/26/17 17:42 Insulin Glargine (Lantus(*)) 10 units SUBCUT Q24H [facility] Insulin Human Lispro (Humalog*) 0 units SUBCUT AC [facility]; Protocol Last Admin: 10/26/17 12:41 Dose: 12 units Lisinopril (Prinivil Tab*) 20 mg PO DAILY [facility] Last Admin: 10/26/17 09:06 Dose: 20 mg Morphine Sulfate (Morphine Vial*) 2 mg IV Q2H PRN PRN Reason: PAIN Last Admin: 10/23/17 20:03 Dose: 2 mg Ondansetron HCl (Zofran Inj*) 4 mg IV Q6H PRN PRN Reason: NAUSEA Last Admin: 10/25/17 08:35 Dose: 4 mg Vital Signs - 8 hr 10/26/17 10/26/17 08:00 11:36 Temperature 98.3 F Pulse Rate 73 Respiratory 14 16 Rate Blood Pressure 148/55 (mmHg) O2 Sat by Pulse 97 Oximetry Oxygen Devices in Use Now: None Result Diagrams: 10/26/17 07:26 10/26/17 07:26 Microbiology and Other Data: Microbiology 10/22/17 16:40 Anaerobic Culture - Preliminary Wound - Right 10/21/17 17:32 Urine Culture - Final Urine 10/22/17 16:40 Skin and Soft Tissue MRSA/MSSA (PCR - Final Foot Right Mrsa Negative S.aureus Positive Gram Stain - Final 10/21/17 20:07 Aerobic Blood Culture - Preliminary Blood Venous No Growth Day 1 Anaerobic Blood Culture - Preliminary No Growth Day 1 10/21/17 20:07 Aerobic Blood Culture - Preliminary Blood Venous No Growth Day 1 Anaerobic Blood Culture - Preliminary No Growth Day 1 Assess/Plan/Problems-Billing Assessment: 62 yo female with uncontrolled diabetes presents to the emergency department with c/o N/V found to have a necrotic toe and sepsis. - Patient Problems (1) Gangrene Current Visit: Yes Status: Acute Comment: - with vascular disease and osteo. - Dispo per Ortho - s/p right transmetatarsal amputation 10/22 - POD #4 - MRI right LE showing "findings most consistent with osteomyletis of the right great toe and elsa metatarsal". -non- weight bearing status per Ortho team - PT/OT - will require subacute rehab - Apprciate ID consult, following - Continue with ancef 2gms IV Q8hrs and Flagyl Day 07/27, On discharged: flagyl 500 mg BID and and ceftriaxone 2gms Q24 hrs -Wound Cx: (+) P. bivia, MSSA, and S. agalactiae (2) Sepsis Current Visit: Yes Status: Acute Comment: - resolved. Screening positive for sepsis on admission with tachycardia and leukocytosis. Leukocytosis is trending down 21k down to 11. CRP 149, ESR 118. No lactic acidosis. - Blood cx NTD (3) Electrolyte abnormality Current Visit: Yes Status: Acute Code(s): E87.8 - OTH DISORDERS OF ELECTROLYTE AND FLUID BALANCE, NEC SNOMED Code(s): 237969714 Comment: - Will recheck Magnesium levels in AM -Corrected Calcium based on most recent albumin level obtainedrecheck in AM (4) Hyponatremia Current Visit: Yes Status: Acute Code(s): E87.1 - HYPO-OSMOLALITY AND HYPONATREMIA SNOMED Code(s): 30822214 Comment: - Suspect multifactorial with HCTZ, vomiting and dehydration. - Improving with IVFs. - Continue watchful waiting (5) Diabetes Current Visit: Yes Status: Acute Code(s): E11.9 - TYPE 2 DIABETES MELLITUS WITHOUT COMPLICATIONS SNOMED Code(s): 98726675 Comment: - uncontrolled DM. HgA1c 10 -Will Increase lantus -Continue Insulin Sliding Scale - continue FSBG with Lispro SS (6) HTN (hypertension) Current Visit: Yes Status: Acute Code(s): I10 - ESSENTIAL (PRIMARY) HYPERTENSION SNOMED Code(s): 20961503 Comment: - Continue Lisinopril and Norvasc, continue to hold HCTZ on hold d/t hyponatremia. -Continue watchful waiting (7) DVT prophylaxis Current Visit: Yes Status: Acute Code(s): SWC7677 - SNOMED Code(s): 015298237 Comment: HSQ Status and Disposition: inpatient. Will require subacute rehab and [facility] IV abx. PICC. PT/OT. awaiting placement
[2017-10-26] MEDS ORDERED: Calcium CHLORIDE 10% SYRINGE* 1 GM in D5W 100 ML BAG* 100 ML IV ONE (16:00)
[2017-10-26] MEDS: Ondansetron INJ* 2 MG/ML VIAL IV PRN (20:20)
[2017-10-27] MEDS: ceFAZolin 2 GM PREMIX (*) 2 GM/50 ML BAG IVPB SCH ×3 (02:10→17:40)
[2017-10-27] MEDS: metroNIDAZOLE IV 500 MG/100ML* 500 MG/100 ML BAG IVPB SCH ×3 (04:10→20:41)
[2017-10-27] MEDS: Heparin VIAL(*) 5000 UNITS/ML VIAL (FIVE THOUSAND) SUBCUT SCH ×3 (05:34→21:44)
[2017-10-27 06:05] LABS: Hematocrit 28 % (35-47); Hemoglobin 9.5 g/dl (12.0-16.0); Mean Corpuscular HGB Conc 34 g/dl (31-36); Mean Corpuscular Hemoglobin 29 pg (27-31); Mean Corpuscular Volume 83 fL (80-97); Mean Platelet Volume 6.5 um3 (7.4-10.4); Platelet Count 451 10^3/ul (150-450); Red Blood Count 3.33 10^6/ul (4.00-5.40); Red Cell Distribution Width 14 % (10.5-15); White Blood Count 9.1 10^3/ul (3.5-10.8)
[2017-10-27 06:24] LABS: EGFR Non-African American 98.7 (>60)
[2017-10-27] MEDS: amLODIPine TAB* 5 MG PO SCH (08:05)
[2017-10-27] MEDS: Insulin LISPRO* 1 UNITS UNIT SUBCUT SCH ×5 (08:06→17:32)
[2017-10-27] MEDS: Lisinopril TAB* 10 MG PO SCH (08:06)
[2017-10-27] MEDS ORDERED: Dextrose 50% Syringe 50 ML* 25 GM/50 ML SYRINGE IV PUSH PRN (08:43)
[2017-10-27] MEDS ORDERED: Magnesium Sulfate IV* 2 GM in NS 0.9% 100 ML* 100 ML IV ONE (09:00)
[2017-10-27] MEDS: Insulin GLARGINE(*) 1 UNITS UNIT SUBCUT SCH (09:10)
--- NOTE | 2017-10-27 13:46 | PN ---
Subjective Date of Service: 10/27/17 Interval History: Pt seen and examined. Meds and labs reviewed ROS: Denied ALBERT/dizziness, F/C, N/V, CP, SOB, increased cough, sputum production , abd pain, diarrhea, constipation, dysuria, myalgias, arthralgias, throat pain , and new skin lesions. The rest of the 14 point ROS are unremarkable. PHYSICAL EXAM: GEN APPEARANCE: Awake, not in acute distress HEENT: NC/AT, PERRLA, moist oral mucosa, (-) throat erythema NECK: Soft, supple, (-) cervical LAD, (-)JVD HEART: S1S2 WNL, RRR, No MRG CHEST: Bibasal crackles, GAE, No W/R/R ABD: Soft, ND/NT, NABS 4x Q EXT: No C/C/, BLLE edema 1+, RLE s/p transmetatarsal amputation - CD+I dressing SKIN: Warm to touch PSYCH: No active psychosis, hallucinations, depression, SI/HI Objective Active Medications: Acetaminophen (Tylenol Tab*) 650 mg PO Q4H PRN PRN Reason: FEVER/PAIN Last Admin: 10/23/17 20:03 Dose: 650 mg Amlodipine Besylate (Norvasc Tab*) 5 mg PO DAILY [facility] Last Admin: 10/27/17 08:05 Dose: 5 mg Dextrose (D50w Syringe 50 Ml*) 12.5 gm IV PUSH .FOR FS < 60 - SS PRN PRN Reason: FS < 60 Dextrose (D50w Syringe 50 Ml*) 12.5 gm IV PUSH .FOR FS < 60 - SS PRN PRN Reason: FS < 60 Heparin Sodium (Porcine) (Heparin Vial(*)) 5,000 units SUBCUT Q8HR [facility] Last Admin: 10/27/17 05:34 Dose: 5,000 units Heparin Sodium (Porcine) (Heparin Flush Picc/Ml/Cvc(*)) 1 ml FLUSH 0600,1800 [facility]; Protocol Last Admin: 10/27/17 05:34 Dose: 1 ml Metronidazole/Sodium Chloride (Flagyl 500 Mg Ivpb*) 500 mg in 100 mls @ 100 mls /hr IVPB Q8H [facility] Last Admin: 10/27/17 12:21 Dose: 100 mls/hr Cefazolin Sodium/Dextrose (Kefzol 2 Gm Premix(*)) 2 gm in 50 mls @ 100 mls/hr IVPB Q8H [facility] Last Admin: 10/27/17 10:36 Dose: 100 mls/hr Insulin Glargine (Lantus(*)) 12 units SUBCUT Q24H [facility] Last Admin: 10/27/17 09:10 Dose: 12 units Insulin Human Lispro (Humalog*) 0 units SUBCUT AC [facility]; Protocol Last Admin: 10/27/17 12:21 Dose: 9 units Insulin Human Lispro (Humalog*) 4 units SUBCUT AC [facility] Last Admin: 10/27/17 12:22 Dose: 4 units Lisinopril (Prinivil Tab*) 20 mg PO DAILY [facility] Last Admin: 10/27/17 08:06 Dose: 20 mg Morphine Sulfate (Morphine Vial*) 2 mg IV Q2H PRN PRN Reason: PAIN Last Admin: 10/23/17 20:03 Dose: 2 mg Ondansetron HCl (Zofran Inj*) 4 mg IV Q6H PRN PRN Reason: NAUSEA Last Admin: 10/26/17 20:20 Dose: 4 mg Vital Signs - 8 hr 10/27/17 10/27/17 10/27/17 07:36 08:00 11:08 Temperature 97.8 F 98.1 F Pulse Rate 65 74 Respiratory 20 16 20 Rate Blood Pressure 146/65 141/56 (mmHg) O2 Sat by Pulse 95 95 96 Oximetry Oxygen Devices in Use Now: None Result Diagrams: 10/27/17 05:40 10/27/17 05:40 Microbiology and Other Data: Microbiology 10/22/17 16:40 Anaerobic Culture - Preliminary Wound - Right 10/21/17 17:32 Urine Culture - Final Urine 10/22/17 16:40 Skin and Soft Tissue MRSA/MSSA (PCR - Final Foot Right Mrsa Negative S.aureus Positive Gram Stain - Final 10/21/17 20:07 Aerobic Blood Culture - Preliminary Blood Venous No Growth Day 1 Anaerobic Blood Culture - Preliminary No Growth Day 1 10/21/17 20:07 Aerobic Blood Culture - Preliminary Blood Venous No Growth Day 1 Anaerobic Blood Culture - Preliminary No Growth Day 1 Assess/Plan/Problems-Billing Assessment: 62 yo female with uncontrolled diabetes presents to the emergency department with c/o N/V found to have a necrotic toe and sepsis. - Patient Problems (1) Gangrene Current Visit: Yes Status: Acute Comment: - with vascular disease and osteo. - Dispo per Ortho - s/p right transmetatarsal amputation 10/22 - POD #5 - MRI right LE showing "findings most consistent with osteomyletis of the right great toe and first metatarsal". -non- weight bearing status per Ortho team - PT/OT - will require subacute rehab - Apprciate ID consult, following - Continue with ancef 2gms IV Q8hrs and Flagyl Day 08/26, On discharged: flagyl 500 mg BID and and ceftriaxone 2gms Q24 hrs -Wound Cx: (+) P. bivia, MSSA, and S. agalactiae (2) Electrolyte abnormality Current Visit: Yes Status: Acute Code(s): E87.8 - OTH DISORDERS OF ELECTROLYTE AND FLUID BALANCE, NEC SNOMED Code(s): 071250366 Comment: -Magnesium corrected -Will recheck both Calcium and Magnesium levels in AM (3) Hyponatremia Current Visit: Yes Status: Acute Code(s): E87.1 - HYPO-OSMOLALITY AND HYPONATREMIA SNOMED Code(s): 28775732 Comment: -Improving - Suspect multifactorial with HCTZ, vomiting and dehydration. - Continue watchful waiting (4) Diabetes Current Visit: Yes Status: Acute Code(s): E11.9 - TYPE 2 DIABETES MELLITUS WITHOUT COMPLICATIONS SNOMED Code(s): 78775837 Comment: - uncontrolled DM. HgA1c 10 -Will Increase lantus and added premeal Humalog -Continue Insulin Sliding Scale - continue FSBG with Lispro SS (5) HTN (hypertension) Current Visit: Yes Status: Acute Code(s): I10 - ESSENTIAL (PRIMARY) HYPERTENSION SNOMED Code(s): 95609319 Comment: - Continue Lisinopril and Norvasc, continue to hold HCTZ on hold d/t hyponatremia. -Continue watchful waiting (6) DVT prophylaxis Current Visit: Yes Status: Acute Code(s): TKJ4100 - SNOMED Code(s): 036035383 Comment: HSQ Status and Disposition: inpatient. Will require subacute rehab and [facility] IV abx. PICC. PT/OT. awaiting placement
[2017-10-28] MEDS: ceFAZolin 2 GM PREMIX (*) 2 GM/50 ML BAG IVPB SCH ×3 (02:10→18:22)
[2017-10-28] MEDS: Ondansetron INJ* 2 MG/ML VIAL IV PRN (03:21)
[2017-10-28] MEDS: metroNIDAZOLE IV 500 MG/100ML* 500 MG/100 ML BAG IVPB SCH (04:13)
[2017-10-28] MEDS: Heparin VIAL(*) 5000 UNITS/ML VIAL (FIVE THOUSAND) SUBCUT SCH ×3 (05:35→21:36)
[2017-10-28 05:48] LABS: Hematocrit 28 % (35-47); Hemoglobin 9.5 g/dl (12.0-16.0); Mean Corpuscular HGB Conc 34 g/dl (31-36); Mean Corpuscular Hemoglobin 28 pg (27-31); Mean Corpuscular Volume 83 fL (80-97); Mean Platelet Volume 6.4 um3 (7.4-10.4); Platelet Count 448 10^3/ul (150-450); Red Blood Count 3.34 10^6/ul (4.00-5.40); Red Cell Distribution Width 14 % (10.5-15); White Blood Count 8.5 10^3/ul (3.5-10.8)
[2017-10-28 06:06] LABS: EGFR Non-African American 95.1 (>60)
[2017-10-28] MEDS: amLODIPine TAB* 5 MG PO SCH (08:17)
[2017-10-28] MEDS: Insulin LISPRO* 1 UNITS UNIT SUBCUT SCH ×6 (08:17→18:23)
[2017-10-28] MEDS: Lisinopril TAB* 10 MG PO SCH (08:17)
[2017-10-28] MEDS: Insulin GLARGINE(*) 1 UNITS UNIT SUBCUT SCH (08:17)
[2017-10-28] MEDS ORDERED: CALCIUM CHLORIDE IV ONE (09:15)
[2017-10-28] MEDS ORDERED: D5W IV ONE (09:15)
[2017-10-28] MEDS ORDERED: Magnesium Sulfate IV* 2 GM in NS 0.9% 100 ML* 100 ML IV ONE (09:16)
--- NOTE | 2017-10-28 10:02 | PN ---
Progress Note - Progress Note Date of Service: 10/28/17 SOAP: Subjective: []Patient seen at sitting at bedside. She denies RLE pain, her splint is comfortable and she has no complaints. Denies fever, chills, CP, SOB, dizziness , nausea. Objective: [] Vital Signs Temp 98.2 F 10/28/17 07:17 Pulse 72 10/28/17 07:17 Resp 18 10/28/17 07:21 BP 145/61 10/28/17 07:17 Pulse Ox 95 10/28/17 07:21 Intake & Output 10/27/17 10/28/17 10/28/17 18:59 06:59 18:59 Intake Total 1556.2 660 240 Output Total 1550 Balance 1556.2 -890 240 Intake: IV Fluids 356.2 20 ABX - CEFAZOLIN 100 ABX - FLAGYL 200 NS (0.9%) 56.2 20 IVPB 160 ABX - FLAGYL 160 Oral 1200 480 240 Output: Urine 1550 Other: Estimated Void Medium Date of Last Bowel 10/27/17 10/26/17 Movement # Bowel Movements 1 0 Estimated Stool Amount Large # Voids 0 2 Laboratory Last Values WBC 8.5 10^3/ul (3.5-10.8) 10/28/17 05:30 RBC 3.34 10^6/ul (4.00-5.40) L 10/28/17 05:30 Hgb 9.5 g/dl (12.0-16.0) L 10/28/17 05:30 Hct 28 % (35-47) L 10/28/17 05:30 MCV 83 fL (80-97) 10/28/17 05:30 MCH 28 pg (27-31) 10/28/17 05:30 MCHC 34 g/dl (31-36) 10/28/17 05:30 RDW 14 % (10.5-15) 10/28/17 05:30 Plt Count 448 10^3/ul (150-450) 10/28/17 05:30 MPV 6.4 um3 (7.4-10.4) L 10/28/17 05:30 Neut % (Auto) 78.3 % (38-83) 10/26/17 07:26 Lymph % (Auto) 13.3 % (25-47) L 10/26/17 07:26 [place] % (Auto) 7.0 % (0-7) 10/26/17 07:26 Eos % (Auto) 1.0 % (0-6) 10/26/17 07:26 Baso % (Auto) 0.4 % (0-2) 10/26/17 07:26 Absolute Neuts (auto) 7.4 10^3/ul (1.5-7.7) 10/26/17 07:26 Absolute Lymphs (auto) 1.3 10^3/ul (1.0-4.8) 10/26/17 07:26 Absolute Monos (auto) 0.7 10^3/ul (0-0.8) 10/26/17 07: Absolute Eos (auto) 0.1 10^3/ul (0-0.6) 10/26/17 07: Absolute Basos (auto) 0 10^3/ul (0-0.2) 10/26/17 07: Absolute Nucleated RBC 0 10^3/ul 10/26/17 07:26 Nucleated RBC % 0 10/26/17 07:26 ESR 118 mm/Hr (0-30) H 10/21/17 16:17 INR (Anticoag Therapy) 1.37 (0.77-1.02) H 10/22/17 19:20 VBG pH 7.40 (7.33-7.43) 10/21/17 16:19 VBG pCO2 46 mmHg (41-51) 10/21/17 16:19 VBG pO2 21 mmHg (35-45) L 10/21/17 16:19 VBG HCO3 26.1 mmol/L (24-28) 10/21/17 16:19 VBG O2 Saturation 35.7 % (70-80) L 10/21/17 16:19 VBG Base Excess 3.2 (0-4) 10/21/17 16:19 Sodium 133 mmol/L (135-145) L 10/28/17 05:30 Potassium 3.9 mmol/L (3.5-5.0) 10/28/17 05:30 Chloride 99 mmol/L (101-111) L 10/28/17 05:30 Carbon Dioxide 30 mmol/L (22-32) 10/28/17 05:30 Anion Gap 4 mmol/L (2-11) 10/28/17 05:30 BUN 10 mg/dL (6-24) 10/28/17 05:30 Creatinine 0.63 mg/dL (0.51-0.95) 10/28/17 05:30 Est GFR ( Amer) 115.1 (>60) 10/28/17 05:30 Est GFR (Non-Af Amer) 95.1 (>60) 10/28/17 05:30 BUN/Creatinine Ratio 15.9 (8-20) 10/28/17 05:30 Glucose 239 mg/dL (70-100) H 10/28/17 05:30 POC Glucose (mg/dL) 259 mg/dL (70-100) H 10/28/17 07:33 Hemoglobin A1c 10.1 % (4.0-5.6) H 10/22/17 05:49 Serum Osmolality 298 mOsm/kg (275-295) H 10/21/17 16:17 Lactic Acid 1.2 mmol/L (0.5-2.0) 10/21/17 16:17 Calcium 7.9 mg/dL (8.6-10.3) L 10/28/17 05:30 Ionized Calcium 4.55 mg/dL (4.65-5.28) L 10/28/17 05:30 Phosphorus 3.0 mg/dL (2.5-5.0) 10/27/17 05:40 Magnesium 1.4 mg/dL (1.9-2.7) L 10/28/17 05:30 Total Bilirubin 0.30 mg/dL (0.2-1.0) 10/27/17 05:40 AST 35 U/L (13-39) 10/27/17 05:40 ALT 25 U/L (7-52) 10/27/17 05:40 Alkaline Phosphatase 73 U/L (34-104) 10/27/17 05:40 Troponin I 0.00 ng/mL (<0.04) 10/21/17 16:17 C-Reactive Protein 21.94 mg/L (<8.01) H 10/26/17 07:26 Total Protein 5.7 g/dL (6.4-8.9) L 10/27/17 05:40 Albumin 2.2 g/dL (3.2-5.2) L 10/27/17 05:40 Globulin 3.5 g/dL (2-4) 10/27/17 05:40 Albumin/Globulin Ratio 0.6 (1-3) L 10/27/17 05:40 TSH 0.76 mcIU/mL (0.34-5.60) 10/21/17 16:17 Cortisol 21.67 mcg/dL 10/21/17 16:17 Urine Color [place]i 10/21/17 17:32 Urine Appearance Turbid 10/21/17 17:32 Urine pH 5.0 (5-9) 10/21/17 17:32 Ur Specific [place] 1.024 (1.010-1.030) 10/21/17 17:32 Urine Protein 2+(100 mg/dl) (Negative) A 10/21/17 17:32 Urine Ketones Trace (Negative) A 10/21/17 17:32 Urine Blood 2+ (Negative) A 10/21/17 17:32 Urine Nitrate Negative (Negative) 10/21/17 17:32 Urine Bilirubin Negative (Negative) 10/21/17 17:32 Urine Urobilinogen Negative (Negative) 10/21/17 17:32 Ur Leukocyte Esterase 3+ (Negative) A 10/21/17 17:32 Urine WBC (Auto) 3+(>20/hpf) (Absent) A 10/21/17 17:32 Urine RBC (Auto) 3+(>10/hpf) (Absent) A 10/21/17 17:32 Ur Squamous Epith Cells Present (Absent) A 10/21/17 17:32 Urine Bacteria 3+ (Absent) A 10/21/17 17:32 Urine Glucose 3+(>=500 mg/dl) (Negative) A 10/21/17 17:32 Vancomycin Trough 9.8 mcg/mL 10/23/17 05:54 General: Well appearing, NAD RLE: Splint CDI. Calf is nontender and no erythema distally. LLE calf supple and nontender without erythema or edema Assessment: []POD 5 S/P right midfoot amputation Plan: NWB RLE, splint to remain CDI OOB with assistance/ walker Cont PT/OT Continue IV abx with guidance of ID: cefepime to ancef 2 gm IV Q8hrs and continue flagyl 500 mg IV Q8hrs. At DC ceftriaxone 2 gm daily and flagyl 500 mg po BID Dressing change/wound check tomorrow DC to rehab when medically stable and set up with abx
--- NOTE | 2017-10-28 11:19 | PN ---
Progress Note - Progress Note Date of Service: 10/28/17 SOAP: Subjective: CC: gangrene HPI: 62 year old diabetic with vascular disease with right forefoot gangrene and osteomyelitis, tolerated amputation well. Energy and appetite improving. No fever, rash, or diarrhea. Objective: Vital Signs Temp 36.8 C 10/28/17 07:17 Pulse 72 10/28/17 07:17 Resp 18 10/28/17 07:21 BP 145/61 10/28/17 07:17 Pulse Ox 95 10/28/17 07:21 Intake & Output 10/27/17 10/28/17 10/28/17 18:59 06:59 18:59 Intake Total 1556.2 660 240 Output Total 1550 Balance 1556.2 -890 240 Intake: IV Fluids 356.2 20 ABX - CEFAZOLIN 100 ABX - FLAGYL 200 NS (0.9%) 56.2 20 IVPB 160 ABX - FLAGYL 160 Oral 1200 480 240 Output: Urine 1550 Other: Estimated Void Medium Date of Last Bowel 10/27/17 10/26/17 Movement # Bowel Movements 1 0 Estimated Stool Amount Large # Voids 0 2 Gen:awake, no distress HEENT: no thrush Heart:RRR no murmur Lungs:CTA BL Abd:+BS NTND soft Skin: no rash MSK: R foot wrapped; RUE PICC Laboratory Results - last 24 hr 10/27/17 10/27/17 10/28/17 11:48 16:30 05:30 WBC RBC Hgb Hct MCV MCH MCHC RDW Plt Count MPV Sodium Potassium Chloride Carbon Dioxide Anion Gap BUN Creatinine Est GFR ( Amer) Est GFR (Non-Af Amer) BUN/Creatinine Ratio Glucose POC Glucose (mg/dL) 278 H 252 H Calcium Ionized Calcium 4.55 L Magnesium 10/28/17 10/28/17 10/28/17 05:30 05:30 07:33 WBC 8.5 RBC 3.34 L Hgb 9.5 L Hct 28 L MCV 83 MCH 28 MCHC 34 RDW 14 Plt Count 448 MPV 6.4 L Sodium 133 L Potassium 3.9 Chloride 99 L Carbon Dioxide 30 Anion Gap 4 BUN 10 Creatinine 0.63 Est GFR ( Amer) 115.1 Est GFR (Non-Af Amer) 95.1 BUN/Creatinine Ratio 15.9 Glucose 239 H POC Glucose (mg/dL) 259 H Calcium 7.9 L Ionized Calcium Magnesium 1.4 L Assessment: 1. 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 Diabetes with neuropathy 3. obesity Plan: 1. ancef 2 gm IV Q8hrs and flagyl will change to PO; day 5, total duration pending her foot progress but minimum 14 days. can use ceftriaxone 2 gm daily and flagyl 500 mg po BID for discharge.
[2017-10-28] MEDS: metroNIDAZOLE TAB* 250 MG PO SCH ×2 (13:57→20:28)
[2017-10-28] MEDS ORDERED: Insulin GLARGINE(*) 1 UNITS UNIT SUBCUT SCH (14:30)
--- NOTE | 2017-10-28 14:39 | PN ---
Subjective Date of Service: 10/28/17 Interval History: Pt seen and examined. Meds and labs reviewed ROS: Denied ALBERT/dizziness, F/C, N/V, CP, SOB, increased cough, sputum production , abd pain, diarrhea, constipation, dysuria, myalgias, arthralgias, throat pain , and new skin lesions. The rest of the 14 point ROS are unremarkable. PHYSICAL EXAM: GEN APPEARANCE: Awake, not in acute distress HEENT: NC/AT, PERRLA, moist oral mucosa, (-) throat erythema NECK: Soft, supple, (-) cervical LAD, (-)JVD HEART: S1S2 WNL, RRR, No MRG CHEST: Bibasal crackles, GAE, No W/R/R ABD: Soft, ND/NT, NABS 4x Q EXT: No C/C/, BLLE edema 1+, RLE s/p trans-metatarsal amputation - CD+I dressing SKIN: Warm to touch PSYCH: No active psychosis, hallucinations, depression, SI/HI Objective Active Medications: Acetaminophen (Tylenol Tab*) 650 mg PO Q4H PRN PRN Reason: FEVER/PAIN Last Admin: 10/23/17 20:03 Dose: 650 mg Amlodipine Besylate (Norvasc Tab*) 5 mg PO DAILY [facility] Last Admin: 10/28/17 08:17 Dose: 5 mg Dextrose (D50w Syringe 50 Ml*) 12.5 gm IV PUSH .FOR FS < 60 - SS PRN PRN Reason: FS < 60 Dextrose (D50w Syringe 50 Ml*) 12.5 gm IV PUSH .FOR FS < 60 - SS PRN PRN Reason: FS < 60 Heparin Sodium (Porcine) (Heparin Vial(*)) 5,000 units SUBCUT Q8HR [facility] Last Admin: 10/28/17 13:57 Dose: 5,000 units Heparin Sodium (Porcine) (Heparin Flush Picc/Ml/Cvc(*)) 1 ml FLUSH 0600,1800 [facility]; Protocol Last Admin: 10/28/17 05:35 Dose: 1 ml Cefazolin Sodium/Dextrose (Kefzol 2 Gm Premix(*)) 2 gm in 50 mls @ 100 mls/hr IVPB Q8H [facility] Last Admin: 10/28/17 10:24 Dose: 100 mls/hr Insulin Glargine (Lantus(*)) 20 units SUBCUT Q24H [facility] Insulin Human Lispro (Humalog*) 0 units SUBCUT AC [facility]; Protocol Last Admin: 10/28/17 12:26 Dose: 9 units Insulin Human Lispro (Humalog*) 7 units SUBCUT AC [facility] Lisinopril (Prinivil Tab*) 20 mg PO DAILY [facility] Last Admin: 10/28/17 08:17 Dose: 20 mg Metronidazole (Flagyl Tab*) 500 mg PO TID [facility] Last Admin: 10/28/17 13:57 Dose: 500 mg Morphine Sulfate (Morphine Vial*) 2 mg IV Q2H PRN PRN Reason: PAIN Last Admin: 10/23/17 20:03 Dose: 2 mg Ondansetron HCl (Zofran Inj*) 4 mg IV Q6H PRN PRN Reason: NAUSEA Last Admin: 10/28/17 03:21 Dose: 4 mg Vital Signs - 8 hr 10/28/17 10/28/17 10/28/17 07:17 07:21 11:05 Temperature 98.2 F 97.8 F Pulse Rate 72 73 Respiratory 18 18 19 Rate Blood Pressure 145/61 139/61 (mmHg) O2 Sat by Pulse 95 95 97 Oximetry Oxygen Devices in Use Now: None Result Diagrams: 10/28/17 05:30 10/28/17 05:30 Microbiology and Other Data: Microbiology 10/22/17 16:40 Anaerobic Culture - Preliminary Wound - Right 10/21/17 17:32 Urine Culture - Final Urine 10/22/17 16:40 Skin and Soft Tissue MRSA/MSSA (PCR - Final Foot Right Mrsa Negative S.aureus Positive Gram Stain - Final 10/21/17 20:07 Aerobic Blood Culture - Preliminary Blood Venous No Growth Day 1 Anaerobic Blood Culture - Preliminary No Growth Day 1 10/21/17 20:07 Aerobic Blood Culture - Preliminary Blood Venous No Growth Day 1 Anaerobic Blood Culture - Preliminary No Growth Day 1 Assess/Plan/Problems-Billing Assessment: 62 yo female with uncontrolled diabetes presents to the emergency department with c/o N/V found to have a necrotic toe and sepsis. - Patient Problems (1) Gangrene Current Visit: Yes Status: Acute Comment: -With vascular disease and osteo. -Appreciate both ID and Ortho F/U today -OOB with assist w/walker -Continue PT/OT---requiring sub-acute rehab placement - Dispo per Ortho - s/p right transmetatarsal amputation 10/22 - POD #6 - MRI right LE showing "findings most consistent with osteomyletis of the right great toe and first metatarsal". -non- weight bearing status per Ortho team - Apprciate ID consult, following - Continue with ancef 2gms IV Q8hrs and Flagyl Day 5/14, On discharged: flagyl 500 mg BID and and ceftriaxone 2gms Q24 hrsFlagyl changed to PO today; appreciate Dr. Bueno input and assistance -Wound Cx: (+) P. bivia, MSSA, and S. agalactiae (2) Electrolyte abnormality Current Visit: Yes Status: Acute Code(s): E87.8 - OTH DISORDERS OF ELECTROLYTE AND FLUID BALANCE, NEC SNOMED Code(s): 945708031 Comment: -Both Magnesium and Calcium corrected -Will recheck both Calcium and Magnesium levels in AMif consistent low despite adequate replacement, consider PO maintenance meds for two weeks until she equilibrates (3) Hyponatremia Current Visit: Yes Status: Acute Code(s): E87.1 - HYPO-OSMOLALITY AND HYPONATREMIA SNOMED Code(s): 02032637 Comment: -Stable - Suspect multifactorial with HCTZ, vomiting and dehydration. - Continue watchful waiting (4) Diabetes Current Visit: Yes Status: Acute Code(s): E11.9 - TYPE 2 DIABETES MELLITUS WITHOUT COMPLICATIONS SNOMED Code(s): 06931139 Comment: -Uncontrolled DM. HgA1c 10 -Will Increase lantus to 20 units and Humalog to 7 units qAC -Continue Insulin Sliding Scale for breakthroughs -Continue FSBG with Lispro SS (5) HTN (hypertension) Current Visit: Yes Status: Acute Code(s): I10 - ESSENTIAL (PRIMARY) HYPERTENSION SNOMED Code(s): 32649278 Comment: -Well-controlled -Continue Lisinopril and Norvasc, continue to hold HCTZ on hold d/t hyponatremia. -Continue watchful waiting (6) DVT prophylaxis Current Visit: Yes Status: Acute Code(s): WUI7140 - SNOMED Code(s): 902203992 Comment: HSQ Status and Disposition: Inpatient. Will require subacute rehab and fpc IV abx. PICC. PT/OT. Awaiting placement
[2017-10-28] MEDS ORDERED: Insulin GLARGINE(*) 1 UNITS UNIT SUBCUT STA (15:52)
[2017-10-29] MEDS: ceFAZolin 2 GM PREMIX (*) 2 GM/50 ML BAG IVPB SCH ×2 (02:44→10:23)
[2017-10-29] MEDS: Heparin VIAL(*) 5000 UNITS/ML VIAL (FIVE THOUSAND) SUBCUT SCH ×2 (05:54→13:06)
[2017-10-29] MEDS: Lisinopril TAB* 10 MG PO SCH (08:14)
[2017-10-29] MEDS: metroNIDAZOLE TAB* 250 MG PO SCH ×2 (08:14→13:05)
[2017-10-29] MEDS: Insulin LISPRO* 1 UNITS UNIT SUBCUT SCH ×4 (08:16→13:07)
[2017-10-29] MEDS ORDERED: amLODIPine TAB* 5 MG PO SCH (09:00)
[2017-10-29] MEDS ORDERED: Insulin GLARGINE(*) 1 UNITS UNIT SUBCUT SCH (09:00)
--- NOTE | 2017-10-29 09:52 | PN ---
Progress Note - Progress Note Date of Service: 10/29/17 SOAP: Subjective: []Patient seen OOB in chair. Her splint is comfortable and intact, no pain of the right foot. Objective: []General: Well appearing, NAD RLE: Splint CDI. Calf is nontender and no erythema distally. LLE calf supple and nontender without erythema or edema Assessment: []POD 6 S/P right midfoot amputation Plan: NWB RLE, splint to remain CDI OOB with assistance/ walker Cont PT/OT ABX per ID: ancef 2 gm IV Q8hrs and flagyl will change to PO. total duration pending her foot progress but minimum 14 days. can use ceftriaxone 2 gm daily and flagyl 500 mg po BID for discharge. F/u with Dr Lyons next week. Keep splint CDI until then. DC per medicine to [facility] today
[2017-10-29 11:19] VITALS: BP 144/64
--- NOTE | 2017-10-29 12:07 | DS ---
CC: Dr. Kelley; Dr. Surya Linda DATE OF ADMISSION: 10/21/2017. DATE OF DISCHARGE: 10/29/2017. DISCHARGE DIAGNOSES: 1. Gangrene of right lower extremity with osteomyelitis of the right great toe and first metatarsal by MRI with wound culture growing P. bivia, MSSA, and S. agalactiae, S/P right forefoot amputation 2. Electrolyte abnormality, patient placed on magnesium and calcium supplementation. 3. Hyponatremia, corrected. 4. Diabetes uncontrolled, Lantus and Humalog further titrated prior to discharge and patient placed back on Sitagliptin. 5. Hypertension, improved control. HISTORY OF PRESENT ILLNESS/HOSPITAL COURSE: The patient is a 62-year-old, lady visiting from [place] and visiting her parents who reside in town who mentions that over the last couple of weeks she has been having intermittent nausea and vomiting. Two weeks prior to admission, she mentioned that she stubbed her toe and has had a fissure or a crack on her toe. She was seen by her experimental machining lab manager and she was keeping an eye on it; however, her toenail fell off and she stated that it has been having foul malodorous smell, particularly in the right great toe. She she presented, she was found to have sepsis secondary to gangrene of the aforementioned toe and was found to be hyponatremic, thought to be due to multifactorial cause along with her sepsis. On 10/23/2017, she then underwent right forefoot amputation and her wound cultures were Prevotella bivia, MSSA, as well as strep agalactiae. She was also seen in consultation by Dr. Kelley and the patient was placed on Ancef 2 gm IV q.8 hours which was subsequently changed to Flagyl p.o. The total duration pending her foot progress is 14 days. Her Ancef was then changed to Ceftriaxone 2 gm daily and Flagyl 500 mg p.o. t.i.d. on discharge from eight more days and was advised to follow-up with Dr. eKlley in one week. She was also seen and re-evaluated by Ms. Mao of Orthopedics prior to his discharge who then answered her questions regarding her activities. She was advised not to bear any weight on her right leg and the splint to remain clean, dry, and intact. She was encouraged to get out of bed with assistance/use of walker as tolerated and to follow-up with Dr. Lyons next week. She was also reminded that she needs to follow-up with her facility MD/ [facility] within three days post DC at [facility], to follow-up with Dr. Kelley in one week, and to call [phone] to further discuss whether antibiotics should be continued for 14 days and will defer. She was advised to call my office regarding any questions, concerns, or further clarifications regarding her discuss plans and prescriptions and to take her prescriptions as prescribed. DISCHARGE MEDICATIONS: 1. Tylenol 650 mg p.o. q.4 prn. 2. Amlodipine 7.5 mg p.o. daily. 3. Insulin Glargine 24 units subcu at bedtime. 4. Insulin Lispro 8 units subcu q.a.c. 5. Lisinopril 20 mg p.o. daily. 6. Flagyl 500 mg p.o. t.i.d. 7. Calcium Carbonate 500 mg p.o. daily. 8. Rocephin 2 gm IV daily for 8 more days until re-evaluated by Dr. Kelley. 9. Magnesium Oxide 400 mg p.o. daily for 3 days until re-evaluated in [facility]. 10. Methylcobalamin 1,000 mcg p.o. daily. 11. Flagyl 500 mg p.o. t.i.d. 12. Sitagliptin one tab p.o. daily. PHYSICAL EXAMINATION: General appearance: The patient is awake, alert, and oriented times three. Not in acute distress. Most recent vital signs of record : Blood pressure 151/61, 98 degrees Fahrenheit, 69 beats per minute heart rate , 17 per minute respiratory rate saturating at 95 percent. HEENT: Normocephalic, atraumatic. PERRLA. Extraocular muscles intact. Negative for icterus. Moist oral mucosa. Negative throat erythema. Neck: Soft, supple with no cervical lymphadenopathy, no JVD. Heart: S1, S2 within normal limits. Regular rate and rhythm. No murmurs, rubs or gallops. Chest: Clear to auscultation bilaterally. Good air entry. No wheezes, rales or rhonchi. Abdomen: Soft, nondistended, nontender. Normal active bowel sounds times four. Extremities: No cyanosis or clubbing with bilateral lower extremity edema 1+. Right lower extremity status post transmetatarsal amputation with CD+I dressing. Skin: Warm to touch. Psychiatric: No active psychosis, depression, suicidal nor homicidal ideation. Total time spent evaluation the patient and reviewing pertinent data and appropriate documentation was greater than 30 minutes. [id number]/[facility] #: [id number] MTDD
== END 2017-10-29 14:20 | DRG 710 ==
LOC: ED 14:44 → MED 19:37
PROVIDERS: ADMIT Hospitalist; ATTEND Student in an Organized Health Care Education/Training Program
PROC: 0Y6M0Z0 Detachment at Right Foot, Complete, Open Approach (ICD-10-PCS; principal; 2017-10-22 16:15)
DX: A41.9 Sepsis, unspecified organism (principal); G93.40 Encephalopathy, unspecified; I96 Gangrene, not elsewhere classified; E87.1 Hypo-osmolality and hyponatremia; E11.52 Type 2 diabetes mellitus with diabetic peripheral angiopathy with gangrene; M86.171 Other acute osteomyelitis, right ankle and foot; N17.9 Acute kidney failure, unspecified; I10 Essential (primary) hypertension; E11.65 Type 2 diabetes mellitus with hyperglycemia; E78.5 Hyperlipidemia, unspecified; E11.69 Type 2 diabetes mellitus with other specified complication; E11.40 Type 2 diabetes mellitus with diabetic neuropathy, unspecified; E66.01 Morbid (severe) obesity due to excess calories; B95.4 Other streptococcus as the cause of diseases classified elsewhere; B95.61 Methicillin susceptible Staphylococcus aureus infection as the cause of diseases classified elsewhere; B96.89 Other specified bacterial agents as the cause of diseases classified elsewhere; B87.89 Myiasis of other sites; E87.8 Other disorders of electrolyte and fluid balance, not elsewhere classified; E86.0 Dehydration; Z79.4 Long term (current) use of insulin; Z68.37 Body mass index [BMI] 37.0-37.9, adult; Z82.69 Family history of other diseases of the musculoskeletal system and connective tissue; Z90.710 Acquired absence of both cervix and uterus; Z80.49 Family history of malignant neoplasm of other genital organs
CPT/HCPCS: 36415; 71045; 80048; 80053; 80202; 81003; 81015; 82330; 82533; 82803; 83036; 83605; 83735; 83930; 84100; 84443; 84484; 85025; 85027; 85610; 85652; 86140; 87040; 87070; 87073; 87076; 87077; 87086; 87185; 87186; 87205; 87640; 87641; 88307; 88311; 93005; 93306; 93922; 99283; A9270-GY; C1751; C8929; J0690; J0692; J0744; J1170; J1644; J2001; J2250; J2270; J2405; J2704; J3010; J3370; J3475; J3490

== ENCOUNTER → 2017-11-18 12:54 | Day surgery (SDC) | payer OTHER ==
[~2017-11-18 12:54] MED LIST: Acetaminophen TAB* 325 MG PO PRN; KETAMINE HCL* 50 MG/ML 10 ML VIAL ONE; Lidocaine 2% PF* 10 ML AMP ONE; Midazolam* 1 MG/ML 2 ML VIAL (2 MG) ONE; Naloxone* 0.4 MG/ML 1 ML VIAL IV PRN; Ondansetron INJ* 2 MG/ML VIAL IV PRN; Propofol* 500 MG/50 ML BTL ONE; ceFAZolin 2 GM PREMIX (*) 2 GM/50 ML BAG IVPB ONE; fentaNYL* 50 MCG/ML 2 ML VIAL (100 MCG VIAL) IV PRN; oxyCODONE TAB* 5 MG TAB ONE
[2017-11-18 17:14] VITALS: BP 163/87
--- NOTE | 2017-11-19 00:15 | OP ---
DATE OF OPERATION: 11/18/17 - [facility] DATE OF : 51 SURGEON: Dr. Surya Lyons. INFORMATION TECHNOLOGY PROJECT MANAGER: Florencio Varma PA-C PRE-OP DIAGNOSIS: Wound breakdown right midtarsal amputation. POST-OP DIAGNOSIS: Wound breakdown right midtarsal amputation. OPERATIVE PROCEDURE: Debridement and secondary closure right midfoot amputation. DESCRIPTION OF PROCEDURE: The patient was taken to the operating room where a thigh tourniquet was applied. We opened up the previous wound which was transverse incision to the midtarsal area. I debrided the skin edges with a 10 blade, removed it about a centimeter of skin edges both plantar and dorsal. The subcutaneous tissue was beveled back to the bone ridge what appeared clean. Local cultures were sent, but we irrigated this thoroughly with 2 L. We then reclosed the wound without tension and the skin edges with 0 Vicryl sutures and Prolene for the skin and a compression dressing applied. Cultures were sent. [id number]/[facility] #: [id number] MTDD
== END | disposition home or self-care (01) ==
LOC: OR 12:54
PROVIDERS: ATTEND Orthopaedic Surgery
DX: T87.81 Dehiscence of amputation stump (principal); E78.5 Hyperlipidemia, unspecified; E11.9 Type 2 diabetes mellitus without complications; Z79.84 Long term (current) use of oral hypoglycemic drugs; I11.9 Hypertensive heart disease without heart failure; I51.7 Cardiomegaly
CPT/HCPCS: 87070; 87073; 87106; 87205; 88304; A9270-GY; J0690; J2001; J2250; J2704